=== PATIENT | male | born 1960 | race Caucasian/White ===

== ENCOUNTER 2016-08-22 13:42 | Emergency (ER) | payer MEDICARE, MEDICAID ==
--- NOTE | 2016-08-22 13:53 | ER Document Report ---
ED Psych Disorder / Suicide - General Chief Complaint: Overdose Stated Complaint: POSSIBLE OVERDOSE Notes: The patient is a 56-year-old male who presents by EMS after he overdosed on his whole bottle of temazepam. The patient is sleepy in the emergency room and unable to provide any additional history. He is satting 95%, breathing normally and in no respiratory distress. EMS said that this was a suicide attempt. TRAVEL OUTSIDE OF THE [place] IN LAST 30 DAYS: No - Related Data Allergies/Adverse Reactions: No Known Allergies Allergy (Verified 12/23/15 21:42) Past Medical History - General Information source: Emergency Med Personnel - Social History Smoking Status: Unknown if Ever Smoked Family History: Reviewed & Not Pertinent - Past Medical History Cardiac Medical History: Denies: Hx Atrial Fibrillation, Hx Congestive Heart Failure, Hx Coronary Artery Disease, Hx Heart Attack, Hx Hypercholesterolemia, Hx Hypertension, Hx Peripheral Vascular Disease, Hx Pulmonary Embolism, Hx Heart Murmur Pulmonary Medical History: Reports: Hx Pneumonia - , 07/2014? Denies: Hx Asthma, Hx Bronchitis, Hx COPD, Hx Respiratory Failure, Hx Sleep Apnea, Hx Tuberculosis Neurological Medical History: Denies: Hx Cerebrovascular Accident, Hx Seizures Endocrine Medical History: Denies: Hx Graves' Disease, Hx Hyperthyroidism, Hx Hypothyroidism Renal/ Medical History: Denies: Hx Benign Prostatic Hyperplasia, Hx End Stage Renal Disease, Hx Kidney Stones, Hx Peritoneal Dialysis Malignancy Medical History: Denies Hx Leukemia, Denies Hx Lung Cancer GI Medical History: Reports: Hx Ulcer - as a child. Denies: Hx Crohn's Disease , Hx Gastroesophageal Reflux Disease, Hx Hiatal Hernia, Hx Irritable Bowel, Hx Liver Failure - Cirrhosis 2014 Hep C negative? Musculoskeltal Medical History: Reports Hx Arthritis, Denies Hx Fibromyalgia, Denies Hx Multiple Sclerosis, Denies Hx Muscular Dystrophy Psychiatric Medical History: Reports: Hx Depression Denies: Hx Bipolar Disorder, Hx Dementia, Hx Post Traumatic Stress Disorder, Hx Schizophrenia Traumatic Medical History: Reports: Hx Fractures - bilateral hands, right wrist , broken ribs, left tibia/fibula Infectious Medical History: Denies: Hx HIV Past Surgical History: Reports: Hx Orthopedic Surgery - LLE. Denies: Hx Appendectomy, Hx Bowel Surgery, Hx Cholecystectomy, Hx Colostomy, Hx Coronary Artery Bypass Graft, Hx Gastric Bypass Surgery, Hx Herniorrhaphy, Hx Pacemaker, Hx Tonsillectomy - Immunizations Hx Diphtheria, Pertussis, Tetanus Vaccination: Yes Review of Systems - Review of Systems -: Yes ROS unobtainable due to patient's medical condition Physical Exam - Vital signs Vitals: Temp Pulse Resp BP Pulse Ox 97.9 F 90 22 H 121/84 97 08/22/16 13:45 08/22/16 13:45 08/22/16 13:45 08/22/16 13:45 08/22/16 13:45 - Notes Notes: PHYSICAL EXAMINATION: GENERAL: No acute distress. Somnolent. HEAD: Atraumatic, normocephalic. EYES: Pupils equal round and reactive to light, extraocular movements intact, sclera anicteric, conjunctiva are normal. ENT: nares patent, oropharynx clear without exudates. Moist mucous membranes. NECK: Normal range of motion, supple without lymphadenopathy LUNGS: Breath sounds clear to auscultation bilaterally and equal. No wheezes rales or rhonchi. HEART: Regular rate and rhythm without murmurs ABDOMEN: Soft, nontender, normoactive bowel sounds. No guarding, no rebound. No masses appreciated. EXTREMITIES: Normal range of motion, no pitting or edema. No cyanosis. NEUROLOGICAL: Cranial nerves grossly intact. SKIN: Warm, Dry, normal turgor, no rashes or lesions noted. Course - Re-evaluation Re-evalutation: Patient has evidence of benzo overdose with an empty bottle of temazepam at bedside. Will sign an IVC for concern about suicide attempt. Spoke to poison control and recommends observing patient for 6 hours. Patient is awake and alert at 19:30. He continued to have a normal respiratory drive and normal pulse ox during his 6 hour observation. Will medically clear patient and have psychiatry evaluate patient in the morning. - Vital Signs Vital signs: Temp Pulse Resp BP Pulse Ox 98.5 F 90 25 H 137/90 H 97 08/22/16 18:26 08/22/16 13:45 08/22/16 18:27 08/22/16 18:27 08/22/16 18:27 - Laboratory Result Diagrams: 08/22/16 15:35 08/22/16 15:35 Laboratory results interpreted by me: 08/22/16 08/22/16 08/22/16 15:05 15:35 15:35 WBC 3.6 L Hgb 11.5 L Hct 35.5 L MCV 79 L MCH 25.3 L RDW 18.5 H Plt Count 141 L Monocytes % 17.2 H Chloride 113 H BUN 5 L AST 107 H Albumin 3.1 L Urine Urobilinogen 4.0 H Salicylates < 1.0 L Acetaminophen < 10 L - EKG Interpretation by [place] EKG shows normal: Sinus rhythm, Dresher, Intervals, QRS Complexes, ST-T Waves Discharge - Discharge Clinical Impression: Suicide attempt Benzodiazepine overdose Qualifiers: Encounter type: initial encounter Injury intent: undetermined intent Qualified Code(s): T42.4X4A - Poisoning by benzodiazepines, undetermined, initial encounter Condition: Stable Disposition: PSYCH HOSP/UNIT
[2016-08-22 15:24] LABS: APPEARANCE,URINE CLEAR; BILIRUBIN,URINE NEGATIVE (NEGATIVE); GLUCOSE, URINE NEGATIVE (NEGATIVE); KETONES,URINE NEGATIVE (NEGATIVE); LEUKOCYTE ESTERASE,URINE NEGATIVE (NEGATIVE); NITRITE,URINE NEGATIVE (NEGATIVE); PROTEIN,URINE NEGATIVE (NEGATIVE); URINE SPECIFIC GRAVITY 1.006
[2016-08-22 15:47] LABS: URINE BARBITURATES SCREEN NEGATIVE; URINE METHADONE SCREEN NEGATIVE; URINE OPIATES LOW NEGATIVE; URINE PHENCYCLIDINE SCREEN NEGATIVE
[2016-08-22 15:58] LABS: ABSOLUTE BASOPHILS # (AUTO) 0.1 10^3/uL (0.0-0.2); ABSOLUTE EOSINOPHILS # (AUTO) 0.2 10^3/uL (0.0-0.6); ABSOLUTE LYMPHOCYTES (AUTO) 0.8 10^3/uL (0.5-4.7); ABSOLUTE MONOCYTES (AUTO) 0.6 10^3/uL (0.1-1.4); BASOPHILS % (AUTO) 1.5 % (0-2); EOSINOPHILS % (AUTO) 5.3 % (0-6); HEMATOCRIT 35.5 % (37.9-51.0); HEMOGLOBIN 11.5 g/dL (13.5-17.0); LYMPHOCYTES % (AUTO) 21.1 % (13-45); MEAN CORPUSCULAR HEMOGLOBIN 25.3 pg (27.0-33.4); MEAN CORPUSCULAR HGB CONC 32.2 g/dL (32.0-36.0); MEAN CORPUSCULAR VOLUME 79 fl (80-97); MONOCYTES % (AUTO) 17.2 % (3-13); RED BLOOD COUNT 4.52 10^6/uL (4.35-5.55); RED CELL DISTRIBUTION WIDTH 18.5 % (11.5-14.0); SEGMENTED NEUTROPHILS % (AUTO) 54.9 % (42-78); WHITE BLOOD COUNT 3.6 10^3/uL (4.0-10.5)
[2016-08-22 16:14] LABS: ALANINE AMINOTRANSFERASE 71 U/L (21-72); ALBUMIN 3.1 g/dL (3.5-5.0); ALCOHOL 78 mg/dL (NONE DETECTED); ALKALINE PHOSPHATASE 109 U/L (38-126); ANION GAP 7 (5-19); ASPARTATE AMINO TRANSFERASE 107 U/L (17-59); BLOOD UREA NITROGEN 5 mg/dL (7-20); CALCIUM 9.2 mg/dL (8.4-10.2); CARBON DIOXIDE 24 mmol/L (22-30); CHLORIDE 113 mmol/L (98-107); CREATININE RESULT 0.74 mg/dL (0.52-1.25); GLUCOSE 93 mg/dL (75-110); POTASSIUM 4.5 mmol/L (3.6-5.0); SODIUM 144.3 mmol/L (137-145); TOTAL PROTEIN 7.8 g/dL (6.3-8.2)
--- NOTE | 2016-08-23 12:31 | EKG REPORT ---
SEVERITY:- OTHERWISE NORMAL ECG - SINUS RHYTHM BORDERLINE LEFT AXIS DEVIATION : Confirmed by: Jinny Montoya 23-Aug-2016 12:30:50
--- NOTE | 2016-08-23 14:45 | PSYCHOLOGICAL NOTE ---
Psych Note - Psych Note Psych Note: The patient is a 56-year-old male who presents by EMS after he overdosed on his whole bottle of temazepam. The patient is sleepy in the emergency room and unable to provide any additional history. Patient is difficult to arouse and with unintelligible mumbling. When asked if he was trying to hurt himself the patient slightly shook his head with more unintelligible mumbling. At this time that patient is unable engage in an evaluation; re-evaluation will be conducted.
--- NOTE | 2016-08-23 14:52 | PSYCHOLOGICAL NOTE ---
Psych Note - Psych Note Psych Note: Re-evaluation The patient is a 56-year-old male who presents by EMS after he overdosed on his whole bottle of temazepam. The patient is sleepy in the emergency room and unable to provide any additional history. Patient is difficult understand with mumbling and low speech. Patient states that he was depressed and took about 60 15mg pills of temazepam. He continued to state that he just wanted to go to sleep but denies that he attempted suicide. Patient then stated that he needed to use the bathroom and that his urinal was not big enough. Patient is semi-alert and orientated to person place time and circumstance. Mood is irritable with flat affect. Patient denies suicidal ideation however admits to being depressed and taking his entire bottle of Temazepam. Patient denies homicidal ideation. Patient denies auditory visual hallucinations; no delusions are noted. Thought process is guarded. Conversational speech is low and mumbled. Eye contact was never maintained. Intellectual abilities appear to be within average range. Attention and concentration are poor. Insight, judgment, impulse control are poor. 311 Unspecified Depressive Disorder Impression\plan: Patient is recommended to continue under IVC; patient is demonstrating continued impairment of insight judgment and impulse control. Patient denies suicidal attempt however admits to taking 6015 mg tablets of temazepam in. Patient refuses to engage in attempts to derail conversations. Patient is recommended for inpatient treatment. Dr. Dhaliwal was consulted on the care and management of this patient. Attending physician is in agreement with recommendations and disposition.
[2016-08-23] MEDS ORDERED: IBUPROFEN 600 MG TABLET PO ONE (20:06)
[2016-08-24] MEDS ORDERED: IBUPROFEN 600 MG TABLET PO ONE (10:15)
--- NOTE | 2016-08-24 11:09 | PSYCHOLOGICAL NOTE ---
Psych Note - Psych Note Psych Note: Re-evaluation The patient is a 56-year-old male who presents by EMS after he overdosed on his whole bottle of temazepam. The patient is sleepy in the emergency room and unable to provide any additional history. Patient states that he takes "took too many pills." He continued to disclose that he lives with his sister and that his brother came down with a friend and he knew this was occurring however did not know that the friend was with 3 children. He continued disclosed that the 3 children were teenagers were up all night talking on cell phones lights are on in going in and out of the door. He stated that he was not getting any sleep because of this. He continued disclosed that he "went too far" and just "went off" because when he woke up he saw that they had moved the TV manufacturing process engineer his stereo without his permission. He continued disclosed that that is when he ended up taking too many of his pills. He states that he received his temazepam from his primary care to help him sleep. Clinician called patient's sister Kristyn, , she disclosed that her brother and her live alone and their brother Lui lives next door and he had somebody living with him. She denies that there was teenagers in the home. She continue disclosed that the patient is an alcoholic and has been for many years. She states that they have been living together for 7 years and that he drinks every day. She continued to disclose that 3 days prior to this event he was drinking heavily and that while he was intoxicated he took the medication; that is when she called EMS for assistance. Kristyn agrees to be patient's safety resource to ensure he does not have access to medications both prescription and [id number] them to assist him with any medical appointments. She continues to agree to encourage the patient to attend substance abuse i.e. alcohol abuse services. Clinician spoke with the patient again to discuss discrepancies in stories. He continued disclosed that she must move the patient out of the home. He states he does not know why she is not telling the truth is glad that they are not living there since he doesn't have to worry about it. He continued to disclose that he is an alcoholic and has been drinking for decades. He states he does drink every day but denies going on a binge. He continued to state that 3 days prior to this event he does not remember anything specific day that he did speak to a friend from [place] and they were talking about Super Bowl he stated that everything else was normal to include the amount that he was drinking. Patient agrees that it is time to seek outpatient services and disclosed that he has been to [facility] important the past. He disclosed that in [place] he had a sponsor with AA however the sponsor committed suicide family's never attempted it since. Patient states that he will think about looking for a peer support program for his alcohol abuse. Patient adamantly denies wanting to hurt himself or others. Patient is semi-alert and orientated to person place time and circumstance. Patient's mood is euthymic with congruent affect. Patient denies continued suicidal and homicidal ideation. Patient denies auditory visual hallucinations ; no delusions are noted. Thought process is organized and linear. Conversational speech is within normal rate tone and prosody. Eye contact was well maintained. Intellectual abilities appear to be within average range. Attention and concentration are good. Insight, judgment, impulse control are fair. 291.9 (F 10.99) Unspecified Alcohol-Related Disorder 311 Unspecified Depressive Disorder Impression\\plan: Patient is recommended for rescind of IVC is considered psychiatrically cleared for discharge. Patient denies continued suicidal ideation and no longer meets criteria per [place] GS 120 2C. Patient's story of what occurred does not correlate with collateral both agree the root of the issue is alcoholism. At this time the stressor that the patient identifies does not exist per the collateral which the patient identifies as a good thing. Patient agrees to outpatient services for substance abuse i.e. alcohol abuse services. Patient is psychiatrically cleared for discharge. Dr. Dhaliwal was consulted on the care and management of this patient. Attending physician is in agreement with recommendations and disposition.
[2016-08-24 11:42] VITALS: BP 138/79
== END 2016-08-24 11:42 ==
LOC: ER 13:42
DX: T42.4X2A Poisoning by benzodiazepines, intentional self-harm, initial encounter (principal); R40.0 Somnolence
CPT/HCPCS: 93005; 99285; 36415; 80307 ×4; 85025; 80053; 81001; 93010; A9270

== ENCOUNTER 2017-02-23 01:16 | Emergency (ER) | payer MEDICARE, MEDICAID ==
[2017-02-23] MEDS ORDERED: LIDOCAINE 5% (700 MG) TRANSDERMAL ADH..PATCH TP ONE (02:08)
[2017-02-23] MEDS ORDERED: MORPHINE SULFATE IR 15 MG TABLET PO ONE (02:08)
--- NOTE | 2017-02-23 03:13 | RADIOLOGY REPORT (SQ) ---
EXAM DESCRIPTION: HIP LEFT AP/LATERAL COMPLETED DATE/TIME: 02/23/2017 2:37 am REASON FOR STUDY: pain, fall COMPARISON: Left hip x-ray 12/23/2015, 01/29/2016, 06/18/2016. NUMBER OF VIEWS: Two views. TECHNIQUE: AP pelvis and additional frog-leg view of the left hip. LIMITATIONS: None. FINDINGS: The patient is status post total left hip arthroplasty. The orthopedic hardware appears i ntact. There is no evidence for acute fracture or dislocation. The right hip joint is maintained. The visualized pelvic ring appears intact. Degenerative changes in the visualized lower lumbar spine . IMPRESSION: Status post total left hip arthroplasty. No radiographic evidence for acute fracture. TECHNICAL DOCUMENTATION: JOB ID: [id number] 2010 [employer]- All Rights Reserved
--- NOTE | 2017-02-23 03:22 | RADIOLOGY REPORT (SQ) ---
EXAM DESCRIPTION: L SPINE WHOLE COMPLETED DATE/TIME: 02/23/2017 2:37 am REASON FOR STUDY: left low back pain COMPARISON: Lumbar spine x-ray 03/11/2013. NUMBER OF VIEWS: Five views including obliques. TECHNIQUE: AP, lateral, oblique, and sacral radiographic images acquired of the lumbar spine. LIMITATIONS: None. FINDINGS: MINERALIZATION: Normal. ALIGNMENT: Mild dextro scoliosis. Mild retrolisthesis of L3 on L4, of L4 on L5 and of L5 on S1. VERTEBRAE: No compression fracture. DISCS: Multilevel degenerative disc disease and osteophytosis, worst at L3-L4, L4-L5 and L5-S1. POSTERIOR ELEMENTS: Multilevel facet arthropathy noted in the lower lumbar spine. HARDWARE: None in the spine. PARASPINAL SOFT TISSUES: Normal. PELVIS: SI joints intact. IMPRESSION: No compression fracture at the lumbar spine. Multilevel degenerative changes. TECHNICAL DOCUMENTATION: JOB ID: [id number] 2010 [employer]- All Rights Reserved
[2017-02-23] MEDS ORDERED: ONDANSETRON 4 MG TAB.RAPDIS PO ONE (03:37)
--- NOTE | 2017-02-23 03:42 | ER Document Report ---
ED General - General Chief Complaint: Hip Pain Stated Complaint: HIP PAIN TO TOES AND GROIN,NO KNOWN INJRY Time Seen by Provider: 02/23/17 01:51 Notes: Patient is a 56-year-old male with a past medical history of a total left hip arthroplasty 10 days of left hip pain left low back pain. States the pain as a severe, constant, stabbing, shooting pain that starts in the left low back and left hip and radiates down to his left knee. 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 Since that time the pain is gotten progressively worse. He has not followed up with his orthopedic surgeon or primary care physician. States that walking or moving worsens the pain. He has been trying ibuprofen with minimal to no improvement of the pain. Denies a history of similar symptoms in the past. Denies any bowel or bladder incontinence, fever, weakness or numbness. TRAVEL OUTSIDE OF THE [place] IN LAST 30 DAYS: No - Related Data Allergies/Adverse Reactions: No Known Allergies Allergy (Verified 02/23/17 01:25) Past Medical History - General Information source: Patient - Social History Smoking Status: Current Every Day Smoker Frequency of alcohol use: Occasional Drug Abuse: None Lives with: Family Family History: Reviewed & Not Pertinent - Past Medical History Cardiac Medical History: Denies: Hx Atrial Fibrillation, Hx Congestive Heart Failure, Hx Coronary Artery Disease, Hx Heart Attack, Hx Hypercholesterolemia, Hx Hypertension, Hx Peripheral Vascular Disease, Hx Pulmonary Embolism, Hx Heart Murmur Pulmonary Medical History: Reports: Hx Pneumonia - , 07/2014? Denies: Hx Asthma, Hx Bronchitis, Hx COPD, Hx Respiratory Failure, Hx Sleep Apnea, Hx Tuberculosis Neurological Medical History: Denies: Hx Cerebrovascular Accident, Hx Seizures Endocrine Medical History: Denies: Hx Graves' Disease, Hx Hyperthyroidism, Hx Hypothyroidism Renal/ Medical History: Denies: Hx Benign Prostatic Hyperplasia, Hx End Stage Renal Disease, Hx Kidney Stones, Hx Peritoneal Dialysis Malignancy Medical History: Denies Hx Leukemia, Denies Hx Lung Cancer GI Medical History: Reports: Hx Ulcer - as a child. Denies: Hx Crohn's Disease , Hx Gastroesophageal Reflux Disease, Hx Hiatal Hernia, Hx Irritable Bowel, Hx Liver Failure - Cirrhosis 2014 Hep C negative? Musculoskeltal Medical History: Reports Hx Arthritis, Denies Hx Fibromyalgia, Denies Hx Multiple Sclerosis, Denies Hx Muscular Dystrophy Psychiatric Medical History: Reports: Hx Depression Denies: Hx Bipolar Disorder, Hx Dementia, Hx Post Traumatic Stress Disorder, Hx Schizophrenia Traumatic Medical History: Reports: Hx Fractures - bilateral hands, right wrist , broken ribs, left tibia/fibula Infectious Medical History: Denies: Hx HIV Past Surgical History: Reports: Hx Orthopedic Surgery - LLE. Denies: Hx Appendectomy, Hx Bowel Surgery, Hx Cholecystectomy, Hx Colostomy, Hx Coronary Artery Bypass Graft, Hx Gastric Bypass Surgery, Hx Herniorrhaphy, Hx Pacemaker, Hx Tonsillectomy - Immunizations Hx Diphtheria, Pertussis, Tetanus Vaccination: Yes Review of Systems - Review of Systems Notes: Constitutional: Negative for fever. HENT: Negative for sore throat. Eyes: Negative for visual changes. Cardiovascular: Negative for chest pain. Respiratory: Negative for shortness of breath. Gastrointestinal: Negative for abdominal pain, vomiting or diarrhea. Genitourinary: Negative for dysuria. Musculoskeletal: Positive for left low back pain and left hip pain Skin: Negative for rash. Neurological: Negative for headaches, weakness or numbness. 10 point ROS negative except as marked above and in HPI. Physical Exam - Vital signs Vitals: Temp Pulse Resp BP Pulse Ox 98.6 F 83 18 159/95 H 97 02/23/17 01:30 02/23/17 01:30 02/23/17 01:30 02/23/17 01:30 02/23/17 01:30 Interpretation: Normal Notes: PHYSICAL EXAMINATION: GENERAL: Well-appearing, well-nourished and in no acute distress. HEAD: Atraumatic, normocephalic. EYES: Pupils equal round and reactive to light, extraocular movements intact, sclera anicteric, conjunctiva are normal. ENT: nares patent, oropharynx clear without exudates. Moist mucous membranes. NECK: Normal range of motion, supple without lymphadenopathy LUNGS: Breath sounds clear to auscultation bilaterally and equal. No wheezes rales or rhonchi. HEART: Regular rate and rhythm without murmurs ABDOMEN: Soft, nontender, normoactive bowel sounds. No guarding, no rebound. No masses appreciated. EXTREMITIES: Pain with axial loading of the left hip as well as internal/ external rotation. No deformity. No leg shortening. Back: No midline spinal tenderness, step-offs or deformities. Pain on palpation of the left mattie-lumbar spinal musculature NEUROLOGICAL: 5 out of 5 strength both distally and proximally bilateral lower extremities. 2+ patellar reflexes bilaterally. No clonus. Sensation grossly intact in the bilateral lower extremities. Patient is able to ambulate without difficulty. PSYCH: Normal mood, normal affect. SKIN: Warm, Dry, normal turgor, no rashes or lesions noted. Course - Re-evaluation Re-evalutation: 02/23/17 03:38 Presentation of a well appearing patient complaining of acute on chronic back pain and left hip pain with associated sciatica. No rapid progression of symptoms, systemic symptoms including fevers, chills, weight loss, history of recent bacterial infection, bilateral symptoms, numbness, weakness, difficulty walking, urinary retention or bowel incontinence, personal history of cancer, immunosuppression, diabetes, known AAA, or history of IV drug use. Exam is without point tenderness over vertebral bodies, pulsatile abdominal mass, and patient has symmetric and intact lower extremity strength, sensation, and reflexes without clonus. 2+ symmetric medial malleolar and dorsalis pedis pulses Based on history and physical, I have a very low suspicion of a concerning etiology of pain including epidural compression syndrome, spinal infection, transverse myelitis, malignancy, abdominal aortic aneurysm, renal colic, acute lower extremity claudication, neurogenic claudication, ankylosing spondylitis, or other intra-abdominal process. Due to absence of concerning risk factors in history and physical as well as absence of rapidly progressive, severe, or bilateral symptoms, will defer imaging at this point. Plan to manage conservatively with outpatient analgesia, analgesia, and physical therapy. - Continue normal daily activities as tolerated by pain - Provide with standard musculoskeletal back pain exercise instructions - Instruct to follow up with primary care provider if symptoms not improving - Provide careful return precautions and concerning symptoms to watch for. - Vital Signs Vital signs: Temp Pulse Resp BP Pulse Ox 98.6 F 83 18 159/95 H 97 02/23/17 01:30 02/23/17 01:30 02/23/17 01:30 02/23/17 01:30 02/23/17 01:30 - Diagnostic Test Radiology reviewed: Image reviewed, Reports reviewed Radiology results interpreted by me: 02/23/17 03:38 Left hip x-ray: Hardware in place. No acute fracture Discharge - Discharge Clinical Impression: Left hip pain, Left sciatic nerve pain Condition: Good Disposition: HOME, SELF-CARE Additional Instructions: You have been seen in the Emergency Department (ED) today for back pain and left hip pain. Your workup and exam have not shown any acute abnormalities and you are likely suffering from muscle strain or possible problems with your discs , but there is no treatment that will fix your symptoms at this time. Please take the gabapentin that has been prescribed as directed. You should also purchase a local lidocaine cream such as "aspercreme with lidocaine" and use per bottle instructions to the affected area. Apply heat to the area as often as you are able. Continue to keep active and avoid prolonged periods of bed rest. Please follow up with your doctor as soon as possible regarding today's ED visit and your back pain. Return to the ED for worsening back pain, fever, weakness or numbness of either leg, or if you develop either (1) an inability to urinate or have bowel movements, or (2) loss of your ability to control your bathroom functions (if you start having "accidents"), or if you develop other new symptoms that concern you.concern you. Prescriptions: Gabapentin 300 mg PO TID #90 capsule Referrals: EMILY AYALA NP [Primary Care Provider] - Follow up in 3-5 days
[2017-02-23 06:36] VITALS: BP 148/81
== END 2017-02-23 04:23 | disposition home or self-care (01) ==
LOC: ER 01:16
DX: M54.42 Lumbago with sciatica, left side (principal); M25.552 Pain in left hip; X50.0XXA Overexertion from strenuous movement or load, initial encounter; G89.29 Other chronic pain; Z96.642 Presence of left artificial hip joint; F17.200 Nicotine dependence, unspecified, uncomplicated
CPT/HCPCS: 99284; 73502; 72110; A9270 ×2; S0119

== ENCOUNTER 2017-03-01 14:52 | Emergency (ER) | payer MEDICARE, MEDICAID ==
[2017-03-01] MEDS ORDERED: KETOROLAC TROMETHAMINE 60 MG/2 ML SDV IM ONE (15:34)
--- NOTE | 2017-03-01 15:40 | ER Document Report ---
ED Hip Pain/Injury - General Chief Complaint: Hip Pain Stated Complaint: HIP PAIN Time Seen by Provider: 03/01/17 15:24 Mode of Arrival: Medic Information source: Patient TRAVEL OUTSIDE OF THE [place] IN LAST 30 DAYS: No - HPI Patient complains to provider of: Pain Occurred: Other - Weeks Onset/Duration: Gradual Quality of pain: Achy, Stabbing Severity: Moderate Pain Level: 3 Skin Color: Normal Skin Temperature: Warm Notes: Patient arrives with complaints of left hip pain and left leg pain. The patient has a history of chronic low back and hip problems. Patient states for the last several weeks he been having pain and he was actually seen here 10 days ago for low back and left hip pain. At that time the patient had x-ray showing degenerative changes with no acute findings. He was placed on gabapentin. He has since followed up with his primary care physician on Friday and is in the process of getting referred. He had no new injuries. No fevers. No bowel or bladder dysfunction. No blood thinners. He denies any IV drug use. He denies any abdominal pain. No nausea, vomiting, diarrhea. He has no other complaints at this time. - Related Data Allergies/Adverse Reactions: No Known Allergies Allergy (Verified 03/01/17 15:01) Past Medical History - Social History Smoking Status: Current Every Day Smoker Chew tobacco use (# tins/day): No Frequency of alcohol use: Occasional Drug Abuse: None Family History: Reviewed & Not Pertinent - Past Medical History Cardiac Medical History: Denies: Hx Atrial Fibrillation, Hx Congestive Heart Failure, Hx Coronary Artery Disease, Hx Heart Attack, Hx Hypercholesterolemia, Hx Hypertension, Hx Peripheral Vascular Disease, Hx Pulmonary Embolism, Hx Heart Murmur Pulmonary Medical History: Reports: Hx Pneumonia - , 07/2014? Denies: Hx Asthma, Hx Bronchitis, Hx COPD, Hx Respiratory Failure, Hx Sleep Apnea, Hx Tuberculosis Neurological Medical History: Denies: Hx Cerebrovascular Accident, Hx Seizures Endocrine Medical History: Denies: Hx Graves' Disease, Hx Hyperthyroidism, Hx Hypothyroidism Renal/ Medical History: Denies: Hx Benign Prostatic Hyperplasia, Hx End Stage Renal Disease, Hx Kidney Stones, Hx Peritoneal Dialysis Malignancy Medical History: Denies Hx Leukemia, Denies Hx Lung Cancer GI Medical History: Reports: Hx Ulcer - as a child. Denies: Hx Crohn's Disease , Hx Gastroesophageal Reflux Disease, Hx Hiatal Hernia, Hx Irritable Bowel, Hx Liver Failure - Cirrhosis 2015 Hep C negative? Musculoskeltal Medical History: Reports Hx Arthritis, Denies Hx Fibromyalgia, Denies Hx Multiple Sclerosis, Denies Hx Muscular Dystrophy Psychiatric Medical History: Reports: Hx Depression Denies: Hx Bipolar Disorder, Hx Dementia, Hx Post Traumatic Stress Disorder, Hx Schizophrenia Traumatic Medical History: Reports: Hx Fractures - bilateral hands, right wrist , broken ribs, left tibia/fibula Infectious Medical History: Denies: Hx HIV Past Surgical History: Reports: Hx Orthopedic Surgery - LLE. Denies: Hx Appendectomy, Hx Bowel Surgery, Hx Cholecystectomy, Hx Colostomy, Hx Coronary Artery Bypass Graft, Hx Gastric Bypass Surgery, Hx Herniorrhaphy, Hx Pacemaker, Hx Tonsillectomy - Immunizations Hx Diphtheria, Pertussis, Tetanus Vaccination: Yes Review of Systems - Review of Systems -: Yes All other systems reviewed and negative Physical Exam - Vital signs Vitals: Temp Pulse Resp BP Pulse Ox 98.3 F 84 20 119/64 95 03/01/17 15:01 03/01/17 15:01 03/01/17 15:01 03/01/17 15:01 03/01/17 15:01 - Notes Notes: GENERAL: alert, cooperative, nontoxic, no distress. HEAD: normocephalic, atraumatic EYES: conjunctiva pink without discharge, no external redness or swelling. EARS: no external swelling, no external redness NOSE: atraumatic, no external swelling MOUTH/THROAT: mucous membranes moist and pink, posterior pharynx without erythema, swelling, exudate. No trismus or drooling. NECK: soft, supple, full range of motion, no meningismus. CHEST: no distress, lungs clear and equal throughout. No wheezing, rales, rhonchi. CARDIAC: regular rate and rhythm, no murmur, normal capillary refill, normal pulses. No peripheral edema noted. ABDOMEN: soft, nontender, no pusatile mass. BACK: Tenderness to the left lumbar paraspinal muscles. No midline tenderness step-offs or crepitus. No rash. EXTREMITIES: full range of motion of all extremities. No redness, no swelling. NEURO: alert and oriented -3, no focal deficits, full range of motion of all extremities. 5 out of 5 flexion and extension of the lower extremities bilaterally. Patellar and Achilles deep tendon reflexes are +2 bilaterally. Normal sensation with no saddle anesthesia. PYSCH: appropriate mood, affect. Patient is cooperative. SKIN: pink, warm, dry, no rash. Course - Re-evaluation Re-evalutation: 03/01/17 15:37 Patient is nontoxic appearing with stable vitals. The patient has a history of chronic back pain. He was seen here 10 days ago with the same complaint. He had x-rays of his low back and left hip at that time. These show degenerative changes without acute findings. The patient was given a prescription for gabapentin at that time. He has since followed up with his primary care doctor who is in the process of making a referral for him. He is still having pain. He denies any new injuries. He has no sign or risk of cauda equina, epidural abscess bleed, AAA, discitis. He will be given a shot of Toradol here in the emergency department, we will discharge him home on an NSAID since he is not currently on an NSAID. This will both help with pain and inflammation. He was instructed to follow-up with his primary care doc as needed and to follow-up with his referral physician as scheduled. Follow-up sooner for increased pain, fever, difficulty controlling his bowels or his bladder, or any further concerns. - Vital Signs Vital signs: Temp Pulse Resp BP Pulse Ox 98.3 F 84 20 119/64 95 03/01/17 15:01 03/01/17 15:01 03/01/17 15:01 03/01/17 15:01 03/01/17 15:01 Discharge - Discharge Clinical Impression: Chronic left hip pain Chronic back pain Qualifiers: Back pain location: low back pain Back pain laterality: left Sciatica presence : with sciatica Sciatica laterality: sciatica of left side Qualified Code(s): M54.42 - Lumbago with sciatica, left side; G89.29 - Other chronic pain Condition: Stable Disposition: HOME, SELF-CARE Instructions: Sciatica ([facility]), Chronic Back Pain ([facility]) Additional Instructions: Take medications as prescribed. Follow-up with your referral doctor as scheduled. Follow-up sooner for increased pain, fever, difficulty controlling her bowels or bladder, or any further concerns. Prescriptions: Diclofenac Sodium [Voltaren] 75 mg PO BID #20 tablet. Referrals: EMILY AYALA NP [Primary Care Provider] - Follow up as needed
[2017-03-01 16:23] VITALS: BP 121/72
== END 2017-03-01 16:28 | disposition home or self-care (01) ==
LOC: ER 14:52
DX: M54.42 Lumbago with sciatica, left side (principal); M25.552 Pain in left hip; M79.605 Pain in left leg; M54.5 Low back pain; G89.29 Other chronic pain
CPT/HCPCS: 99283; 96372; J1885

== ENCOUNTER 2017-08-24 14:38 | Observation (INO) | payer MEDICARE, MEDICAID ==
[2017-08-24] MEDS ORDERED: ASPIRIN 81 MG TABLET, CHEWABLE PO ONE (14:39)
--- NOTE | 2017-08-24 14:42 | ER Document Report ---
ED General - General Chief Complaint: Chest Pain Stated Complaint: CHEST PAIN Time Seen by Provider: 08/24/17 14:41 Mode of Arrival: Medic Information source: Patient TRAVEL OUTSIDE OF THE [place] IN LAST 30 DAYS: No - HPI Notes: 57-year-old male presents today with complaints of chest pain, dyspnea and shortness of breath that has been occurring for the last 3 days via EMS. History of left-sided vascular necrosis. Patient was given 324 baby aspirin in route tissue, 2 nitro sublingual. Patient states his chest pain episode lasted for about 45 minutes, radiates to left shoulder and left arm reveals numbness and tingling while at rest. Reports he has had at least 5 episodes a day for the last 3 days. Patient thought the symptoms are related to acid reflux. Reports worse with ambulation, states he becomes more dyspneic only going 10 feet. denies nausea, fevers, chills, vomiting, diarrhea, abdominal pain, hematuria, testicular pain, blurred vision, double vision, loss of vision, syncope, headaches, neck pain, weakness, bowel or bladder dysfunction, saddle anesthesia or rash - Related Data Allergies/Adverse Reactions: No Known Allergies Allergy (Verified 08/24/17 14:38) Past Medical History - General Information source: Patient - Social History Smoking Status: Former Smoker Family History: Reviewed & Not Pertinent - Past Medical History Cardiac Medical History: Denies: Hx Atrial Fibrillation, Hx Congestive Heart Failure, Hx Coronary Artery Disease, Hx Heart Attack, Hx Hypercholesterolemia, Hx Hypertension, Hx Peripheral Vascular Disease, Hx Pulmonary Embolism, Hx Heart Murmur Pulmonary Medical History: Reports: Hx Pneumonia - , 07/2014? Denies: Hx Asthma, Hx Bronchitis, Hx COPD, Hx Respiratory Failure, Hx Sleep Apnea, Hx Tuberculosis Neurological Medical History: Denies: Hx Cerebrovascular Accident, Hx Seizures Endocrine Medical History: Denies: Hx Graves' Disease, Hx Hyperthyroidism, Hx Hypothyroidism Renal/ Medical History: Denies: Hx Benign Prostatic Hyperplasia, Hx End Stage Renal Disease, Hx Kidney Stones, Hx Peritoneal Dialysis Malignancy Medical History: Denies Hx Leukemia, Denies Hx Lung Cancer GI Medical History: Reports: Hx Ulcer - as a child. Denies: Hx Crohn's Disease , Hx Gastroesophageal Reflux Disease, Hx Hiatal Hernia, Hx Irritable Bowel, Hx Liver Failure - Cirrhosis 2014 Hep C negative?, Hx Pancreatitis Musculoskeltal Medical History: Reports Hx Arthritis, Denies Hx Fibromyalgia, Denies Hx Multiple Sclerosis, Denies Hx Muscular Dystrophy Psychiatric Medical History: Reports: Hx Depression Denies: Hx Bipolar Disorder, Hx Dementia, Hx Post Traumatic Stress Disorder, Hx Schizophrenia Traumatic Medical History: Reports: Hx Fractures - bilateral hands, right wrist , broken ribs, left tibia/fibula Infectious Medical History: Denies: Hx HIV Past Surgical History: Reports: Hx Orthopedic Surgery - LLE. Denies: Hx Appendectomy, Hx Bowel Surgery, Hx Cholecystectomy, Hx Colostomy, Hx Coronary Artery Bypass Graft, Hx Gastric Bypass Surgery, Hx Herniorrhaphy, Hx Pacemaker, Hx Tonsillectomy - Immunizations Hx Diphtheria, Pertussis, Tetanus Vaccination: Yes Review of Systems - Review of Systems Constitutional: No symptoms reported EENT: No symptoms reported Cardiovascular: See HPI Respiratory: See HPI Gastrointestinal: No symptoms reported Genitourinary: No symptoms reported Male Genitourinary: No symptoms reported Musculoskeletal: No symptoms reported Skin: No symptoms reported Hematologic/Lymphatic: No symptoms reported Neurological/Psychological: No symptoms reported Physical Exam - Vital signs Vitals: Pulse Ox 97 08/24/17 14:40 - Notes Notes: PH PHYSICAL EXAMINATION: GENERAL: chronically appearing ill male in moderate respiratory distress HEAD: Atraumatic, normocephalic. EYES: Pupils equal round and reactive to light, extraocular movements intact, sclera anicteric, conjunctiva are normal. ENT: Nares patent, oropharynx clear without exudates. Moist mucous membranes. NECK: Normal range of motion, supple without lymphadenopathy LUNGS: Decreased air exchange bilaterally. Accessory muscle use. Diffuse wheezing. No rales or rhonchi HEART: Tachycardia and rhythm without murmurs ABDOMEN: Soft, nontender, nondistended abdomen. No guarding, no rebound. No masses appreciated. Musculoskeletal: Normal range of motion, no pitting or edema. No cyanosis. NEUROLOGICAL: Cranial nerves grossly intact. Normal speech, normal gait. Normal sensory, motor exams PSYCH: Normal mood, normal affect. SKIN: Warm, Dry, normal turgor, no rashes or lesions noted.. Course - Re-evaluation Re-evalutation: Rechecked the patient who is resting comfortably. On re-exam, patient is symptomatically improved. Cardiac enzymes show troponin that is elevated at 0.092, patient had relief with 2 doses of nitroglycerin. EKG showed sinus tachycardia STEMI. Patient given 2 breathing treatments. Breath sounds are clear after treatment. D-dimer negative. 1500-consulted with Dr. Jeong, hospitalist, regarding pertinent laboratory and radiological findings. Will admit observation telemetry. Patient agree with plan of care and agreed to stay. - Vital Signs Vital signs: Temp Pulse Resp BP Pulse Ox 98.7 F 18 130/70 H 98 08/24/17 14:56 08/24/17 17:01 08/24/17 17:01 08/24/17 17:01 - Laboratory Result Diagrams: 08/24/17 15:04 08/24/17 15:04 Laboratory results interpreted by me: 08/24/17 08/24/17 15:04 15:04 WBC 15.2 H Hgb 13.4 L RDW 19.0 H Monocytes % 15.6 H Absolute Neutrophils 10.3 H Absolute Monocytes 2.4 H Sodium 135.2 L Chloride 109 H Carbon Dioxide 20 L Glucose 194 H Direct Bilirubin 0.6 H Albumin 2.9 L - Diagnostic Exam Chest Type of test: Xray Findings: Nml/NAD, No infiltrates, Nml heart size, Nml mediastinum, No pneumothorax - EKG Interpretation by Me EKG shows normal: Sinus rhythm Rate: Tachycardia [place]/QRS: Left axis deviation Discharge - Discharge Clinical Impression: Elevated troponin I level, Angina pectoris Condition: Good Disposition: ADMITTED OBSERVATION Admitting Provider: Hospitalist - Dr. jeong Unit Admitted: Telemetry
[2017-08-24] MEDS ORDERED: METHYLPREDNISOLONE INJ 125 MG/2 ML SDV IV ONE (14:51)
[2017-08-24] MEDS ORDERED: NITROGLYCERIN 0.4 MG/TAB 25 TAB/BOTTLE SL ONE (14:51)
[2017-08-24] MEDS ORDERED: IPRATROPIUM/ALBUTEROL 0.5-2.5 MG/3 ML AMPUL NEB ONE ×2 (14:52→16:20)
[2017-08-24 15:33] LABS: ABSOLUTE BASOPHILS # (AUTO) 0.1 10^3/uL (0.0-0.2); ABSOLUTE EOSINOPHILS # (AUTO) 0.3 10^3/uL (0.0-0.6); ABSOLUTE LYMPHOCYTES (AUTO) 2.1 10^3/uL (0.5-4.7); ABSOLUTE MONOCYTES (AUTO) 2.4 10^3/uL (0.1-1.4); ABSOLUTE NEUT (AUTO) 10.3 10^3/uL (1.7-8.2); BASOPHILS % (AUTO) 0.4 % (0-2); EOSINOPHILS % (AUTO) 2.3 % (0-6); HEMATOCRIT 40.8 % (37.9-51.0); HEMOGLOBIN 13.4 g/dL (13.5-17.0); LYMPHOCYTES % (AUTO) 13.8 % (13-45); MEAN CORPUSCULAR HEMOGLOBIN 28.1 pg (27.0-33.4); MEAN CORPUSCULAR HGB CONC 32.8 g/dL (32.0-36.0); MEAN CORPUSCULAR VOLUME 86 fl (80-97); MONOCYTES % (AUTO) 15.6 % (3-13); PLATELET COUNT 196 10^3/uL (150-450); RED BLOOD COUNT 4.76 10^6/uL (4.35-5.55); SEGMENTED NEUTROPHILS % (AUTO) 67.9 % (42-78); TOTAL CELLS COUNTED % (AUTO) 100 %; WHITE BLOOD COUNT 15.2 10^3/uL (4.0-10.5)
--- NOTE | 2017-08-24 15:41 | RADIOLOGY REPORT (SQ) ---
EXAM DESCRIPTION: CHEST SINGLE VIEW COMPLETED DATE/TIME: 08/24/2017 3:27 pm REASON FOR STUDY: cp COMPARISON: 12/28/2015 EXAM PARAMETERS: NUMBER OF VIEWS: One view. TECHNIQUE: Single frontal radiographic view of the chest acquired. RADIATION DOSE: NA LIMITATIONS: None. FINDINGS: LUNGS AND PLEURA: No acute opacities, masses or pneumothorax. No pleural effusion. MEDIASTINUM AND HILAR STRUCTURES: Stable. HEART AND VASCULAR STRUCTURES: Stable. BONES: No acute findings. HARDWARE: None in the chest. OTHER: No other significant finding. IMPRESSION: NO ACUTE RADIOGRAPHIC FINDING IN THE CHEST. TECHNICAL DOCUMENTATION: JOB ID: [id number] [place]-72 2010 [employer]- All Rights Reserved
[2017-08-24 15:51] LABS: ALANINE AMINOTRANSFERASE 69 U/L (21-72); ALBUMIN 2.9 g/dL (3.5-5.0); ALKALINE PHOSPHATASE 123 U/L (38-126); ANION GAP 6 (5-19); ASPARTATE AMINO TRANSFERASE 45 U/L (17-59); BILIRUBIN,DIRECT 0.6 mg/dL (0.0-0.4); BLOOD UREA NITROGEN 11 mg/dL (7-20); CALCIUM 9.5 mg/dL (8.4-10.2); CARBON DIOXIDE 20 mmol/L (22-30); CHLORIDE 109 mmol/L (98-107); GLUCOSE 194 mg/dL (75-110); PHOSPHORUS 2.7 mg/dL (2.5-4.5); POTASSIUM 4.6 mmol/L (3.6-5.0); SODIUM 135.2 mmol/L (137-145); TOTAL PROTEIN 6.4 g/dL (6.3-8.2)
--- NOTE | 2017-08-24 18:33 | EKG REPORT ---
SEVERITY:- OTHERWISE NORMAL ECG - SINUS TACHYCARDIA BORDERLINE LEFT AXIS DEVIATION : Confirmed by: Jinny Montoya 24-Aug-2017 18:32:45
[2017-08-24] MEDS ORDERED: ACETAMINOPHEN 325 MG TABLET PO PRN (19:23)
[2017-08-24] MEDS ORDERED: IPRATROPIUM/ALBUTEROL 0.5-2.5 MG/3 ML AMPUL NEB PRN (19:23)
--- NOTE | 2017-08-24 19:41 | PDOC H&P ---
History of Present Illness Admission Date/PCP: 08/24/17 17:38 EMILY AYALA NP Patient complains of: chest pains History of Present Illness: FABIO MURILLO is a 57 year old male Chronic smoker presents to the ED with a 3 day history of increasing chest pains and shortness of breath patient states the pain Is precordial radiates to the left arm; occurs at any time rest or with physical exertion It is associated with a cough productive of yellow mucus and shortness of breath Upon evaluation in the ED patient had troponins in the intermediate range, a normal EKG, normal chest x-ray He was subsequently admitted for observation under hospitalist service Past Medical History Cardiac Medical History: Denies: Atrial Fibrillation, Congestive Heart Failure, Coronary Artery Disease, Myocardial Infarction, Hyperlipidema, Hypertension, Peripheral Vascular Disease, Pulmonary Embolism, Heart Murmur Pulmonary Medical History: Reports: Pneumonia - , 07/2014? Denies: Asthma, Bronchitis, Chronic Obstructive Pulmonary Disease (COPD), Respiratory Failure, Sleep Apnea, Tuberculosis Neurological Medical History: Denies: Seizures Endocrine Medical History: Denies: Hyperthyroidism, Hypothyroidism Renal/ Medical History: Denies: End Stage Renal Disease Malignancy Medical History: Denies: Breast Cancer, Cervical Cancer, Leukemia, Lung Cancer, Ovarian Cancer GI Medical History: Denies: Crohn's Disease, Gastroesophageal Reflux Disease, Hiatal Hernia Musculoskeltal Medical History: Reports: Arthritis Denies: Fibromyalgia Psychiatric Medical History: Reports: Depression Denies: Bipolar Disorder, Dementia, Post Traumatic Stress Disorder Hematology: Reports: Anemia - platelets run low Denies: Hemophilia, Sickle Cell Disease Infectious Medical History: Denies: HIV Past Surgical History Past Surgical History: Reports: Orthopedic Surgery - LLE Denies: Appendectomy, Cholecystectomy, Colostomy, Coronary Artery Bypass Graft, Gastric Bypass Surgery, Herniorrhaphy, Pacemaker, Tonsillectomy Social History Information Source: Patient Smoking Status: Former Smoker Frequency of Alcohol Use: Heavy Hx Recreational Drug Use: No Hx Prescription Drug Abuse: No - Advance Directive Resuscitation Status: Do Not Intubate Surrogate healthcare decision maker:: Sister Kristyn Family History Family History: Reviewed & Not Pertinent Parental Family History Reviewed: Yes Children Family History Reviewed: Yes Sibling(s) Family History Reviewed.: Yes Medication/Allergy Home Medications: Cyanocobalamin (Vitamin B-12) [Vitamin B-12] 1,000 mcg PO DAILY 01/22/16 Temazepam 15 mg PO QPM PRN 01/22/16 Oxycodone HCl [Oxy-Ir 5 mg Tablet] 5 mg PO Q6HP PRN #0 tablet 01/31/16 Rivaroxaban [Xarelto 10 mg Tablet] 10 mg PO QHS #0 tablet 01/31/16 Gabapentin 300 mg PO TID #90 capsule 02/23/17 Diclofenac Sodium [Voltaren] 75 mg PO BID #20 tablet. 03/01/17 Allergies/Adverse Reactions: No Known Allergies Allergy (Verified 08/24/17 14:38) Review of Systems Constitutional: ABSENT: anorexia, chills, headache(s) Eyes: ABSENT: visual disturbances Ears: ABSENT: hearing changes Nose, Mouth, and Throat: ABSENT: as per HPI, headache(s), mouth pain, sore throat, vertigo, other Cardiovascular: PRESENT: chest pain, dyspnea on exertion, edema, orthropnea Respiratory: PRESENT: cough, dyspnea, sputum - Purulent Gastrointestinal: ABSENT: abdominal pain, constipation, diarrhea, hematemesis, hematochezia, nausea, vomiting Genitourinary: ABSENT: dysuria, hematuria Musculoskeletal: ABSENT: joint swelling Neurological: ABSENT: abnormal gait, abnormal speech, confusion, dizziness, focal weakness, syncope Psychiatric: PRESENT: anxiety, depression Endocrine: ABSENT: cold intolerance, heat intolerance, polydipsia, polyuria Allergic/Immunologic: ABSENT: as per HPI, seasonal rhinorrhea, other Physical Exam Vital Signs: Temp Pulse Resp BP Pulse Ox 98.7 F 19 149/93 H 96 08/24/17 14:56 08/24/17 19:01 08/24/17 19:01 08/24/17 19:01 General appearance: PRESENT: no acute distress, obese Head exam: PRESENT: atraumatic, normocephalic Eye exam: PRESENT: conjunctiva pink, EOMI, PERRLA. ABSENT: scleral icterus Neck exam: ABSENT: carotid bruit, JVD, lymphadenopathy, thyromegaly Respiratory exam: PRESENT: clear to auscultation [place], decreased breath sounds. ABSENT: rales, rhonchi, wheezes Cardiovascular exam: PRESENT: RRR. ABSENT: diastolic murmur, rubs, systolic murmur Pulses: PRESENT: normal dorsalis pedis pul GI/Abdominal exam: PRESENT: normal bowel sounds, soft. ABSENT: distended, guarding, mass, organolmegaly, rebound, tenderness Rectal exam: PRESENT: deferred Extremities exam: PRESENT: full ROM, +1 edema. ABSENT: calf tenderness, clubbing, pedal edema Neurological exam: PRESENT: alert, awake, oriented to person, oriented to place , oriented to time, oriented to situation, CN II-XII grossly intact. ABSENT: motor sensory deficit Psychiatric exam: PRESENT: appropriate affect, normal mood. ABSENT: homicidal ideation, suicidal ideation Skin exam: PRESENT: dry, intact, warm. ABSENT: cyanosis, rash Results Laboratory Results: 08/24/17 08/24/17 08/24/17 15:04 15:04 15:04 WBC 15.2 H Hgb 13.4 L Hct 40.8 Sodium 135.2 L Potassium 4.6 Chloride 109 H Carbon Dioxide 20 L BUN 11 Creatinine 0.60 Troponin I 0.093 EKG Comments: SINUS TACHYCARDIA [CHRISTOPHE] . BORDERLINE LEFT AXIS DEVIATION Impressions: Chest X-Ray 08/24/17 14:39 IMPRESSION: NO ACUTE RADIOGRAPHIC FINDING IN THE CHEST. Assessment & Plan - Diagnosis (2) Acute bronchitis Qualifiers: Bronchitis organism: unspecified organism Qualified Code(s): J20.9 - Acute bronchitis, unspecified Is this a current diagnosis for this admission?: Yes (3) Tobacco abuse Is this a current diagnosis for this admission?: Yes - Time Time Spent with patient: Patient will be admitted to telemetry unit We will monitor Serial cardiac enzymes Repeat EKG in a.m. We will treat the patient with Ecotrin 325 mg p.o. daily and initiate Lipitor 80 mg nightly Obtain hemoglobin A1c and lipid profile thyroid profile in a.m. Patient will be treated empirically for an acute bronchitis with Levaquin IV Sputum culture will be obtained We will order nebs We will rule out PE and DVT Lovenox prophylaxis will be initiated Time Spent: 50 to 70 Minutes
[2017-08-24] MEDS ORDERED: ASPIRIN 325 MG TABLET, ENT COATED PO SCH (19:45)
[2017-08-24] MEDS ORDERED: ASPIRIN 325 MG TABLET, ENT COATED PO ONE (20:15)
[2017-08-24] MEDS ORDERED: ATORVASTATIN CALCIUM 80 MG TABLET PO ONE (20:15)
[2017-08-24 20:50] LABS: TROPONIN I 0.087 ng/mL
--- NOTE | 2017-08-24 20:55 | RADIOLOGY REPORT (SQ) ---
EXAM DESCRIPTION: CTA CHEST COMPLETED DATE/TIME: 08/24/2017 8:42 pm REASON FOR STUDY: SOB chest pain E09.69 DRUG/CHEM DIABETES MELLITUS W OTH COMPLICATION COMPARISON: 2014. Recent radiographs. TECHNIQUE: CT scan of the chest performed using helical scanning technique with dynamic intravenous contrast injection. Images reviewed with lung, soft tissue and bone windows. Reconstructed coronal and sagittal MPR images reviewed. Additional 3 dimensional post-processing performed to develop Maximal Intensity Projection images (MN P). All images stored on PACS. All CT scanners at this facility use dose modulation, iterative reconstruction, and/or weight based d osing when appropriate to reduce radiation dose to as low as reasonably achievable (ALARA). [facility]: Dose Right [facility]: CareDose [facility]: Dose Right [facility]: Teradose 4D [facility]: Megathread CONTRAST TYPE AND DOSE: contrast/concentration: Isovue 370.00 mg/ml; Total Contrast Delivered: 82.0 ml; Total Saline Delivered: 110.0 ml Contrast adequate for the aorta, sub optimal opacification of the pulmonary arteries. RENAL FUNCTION: GFR > 60. RADIATION DOSE: CT Rad equipment meets quality standard of care and radiation dose reduction techniq ues were employed. CTDIvol: 26.9 - 33.1 mGy. DLP: 1092 mGy-cm. . LIMITATIONS: Limited evaluation of the pulmonary arteries. FINDINGS: LUNGS AND PLEURA: No masses, infiltrates, pneumothorax. No pleural effusions, calcificati ons. AORTA AND GREAT VESSELS: No aneurysm. Contrast bolus not optimized for the aorta. HEART: No pericardial effusion. No significant coronary artery calcifications. PULMONARY ARTERIES: Main pulmonary arteries are free of clot. Beyond this, limited assessment due to diminished contrast bolus. HILAR AND MEDIASTINAL STRUCTURES: Calcified nodes. No suspicious adenopathy or mass. HARDWARE: None in the chest. UPPER ABDOMEN: Extremely nodular liver. Splenic calcifications consistent with previous granulomatou s disease. Spleen looks mildly prominent at 14 cm. Numerous collateral vessels in the gastrohepatic ligament, findings consistent with cirrhosis with portal hypertension. THYROID AND OTHER SOFT TISSUES: No masses. No adenopathy. BONES: No acute or significant finding. 3D MIPS: Confirm above findings. OTHER: No other significant finding. IMPRESSION: 1. Normal thoracic aorta. 2. Limited assessment of the pulmonary arteries. No central pulmonary embolus detected. 3. Upper abdominal findings consistent with cirrhosis and portal hyperte nsion. COMMENT: Quality ID # [id number]: Final reports with documentation of one or more dose reduction techniques (e.g., Automated exposure control, adjustment of the mA and/or kV according to patient size, use of iterative reconstruction technique) TECHNICAL DOCUMENTATION: JOB ID: [id number] [employer]- All Rights Reserved
[2017-08-24] MEDS ORDERED: LEVOFLOXACIN 750 MG/D5W RTU 750 MG/150 ML RTUPB IV ONE (21:00)
[2017-08-24] MEDS: PANTOPRAZOLE SODIUM 40 MG VIAL IV SCH (21:50)
[2017-08-24 23:15] LABS: APPEARANCE,URINE CLEAR; BILIRUBIN,URINE NEGATIVE (NEGATIVE); COLOR,URINE YELLOW; GLUCOSE, URINE >=500 mg/dL (NEGATIVE); KETONES,URINE NEGATIVE (NEGATIVE); LEUKOCYTE ESTERASE,URINE NEGATIVE (NEGATIVE); NITRITE,URINE NEGATIVE (NEGATIVE); PROTEIN,URINE NEGATIVE (NEGATIVE); URINE SPECIFIC GRAVITY 1.058
[2017-08-24] MEDS ORDERED: IBUPROFEN 800 MG TABLET PO ONE (23:32)
--- NOTE | 2017-08-25 06:44 | EKG REPORT ---
SEVERITY:- OTHERWISE NORMAL ECG - SINUS RHYTHM EARLY PRECORDIAL TRANSITION, UNCHANGED : Confirmed by: Martínez Ellington MD 25-Aug-2017 06:44:01
[2017-08-25 08:57] LABS: ALANINE AMINOTRANSFERASE 64 U/L (21-72); ALBUMIN 2.8 g/dL (3.5-5.0); ALKALINE PHOSPHATASE 99 U/L (38-126); ANION GAP 6 (5-19); ASPARTATE AMINO TRANSFERASE 37 U/L (17-59); BILIRUBIN,DIRECT 0.6 mg/dL (0.0-0.4); BILIRUBIN,TOTAL 1.2 mg/dL (0.2-1.3); BLOOD UREA NITROGEN 13 mg/dL (7-20); CALCIUM 9.5 mg/dL (8.4-10.2); CARBON DIOXIDE 20 mmol/L (22-30); CHLORIDE 105 mmol/L (98-107); CHOLESTEROL 185.32 mg/dL (0-200); GLUCOSE 307 mg/dL (75-110); SODIUM 130.8 mmol/L (137-145); TOTAL PROTEIN 6.1 g/dL (6.3-8.2); TRIGLYCERIDES 38 mg/dL (<150)
[2017-08-25 09:07] LABS: DIRECT LDL 75 mg/dL (<100)
[2017-08-25] MEDS: ASPIRIN 325 MG TABLET, ENT COATED PO SCH (09:30)
[2017-08-25] MEDS: PANTOPRAZOLE SODIUM 40 MG VIAL IV SCH ×2 (09:31→21:32)
[2017-08-25] MEDS: ENOXAPARIN SODIUM INJ 40 MG/0.4 ML DISP.SYRIN SUBCUT SCH (09:31)
[2017-08-25] MEDS ORDERED: LEVOFLOXACIN 750 MG/D5W RTU 750 MG/150 ML RTUPB IV SCH ×2 (10:00→22:00)
[2017-08-25] MEDS: NORMAL SALINE 1000 ML 1,000 ML IV PRN ×2 (10:15→18:47)
[2017-08-25] MEDS: GABAPENTIN 300 MG CAPSULE PO SCH (10:15)
--- NOTE | 2017-08-25 13:34 | Physician Advisory Note ---
Physician Advisor ProgressNote .: [facility], I have reviewed the medical record for this patient. Physician Advisor Statement: Please consider documenting, if you agree: 1. "Possible COPD exacerbation w/Acute bronchitis, evidenced by COOK just walking 10 ft/SOB/cough/purulent sputum, wheezing, ..." 2. "acute CP, suspect due to " (acute cardiac ischemia? pleurisy from #1? ...) 3. "Acute hyponatremia, likely due to , worse today" 4. "Acute metabolic acidosis, suspect due to " (or "Acute Resp Alkalosis due to "?) 5. Medical necessity: If pt not sufficiently improved enough for d/c home today, please document reasons/concerns, & then may change to Inpatient status. (Ex: "Not back to baseline respiratory status", "worsening hyponatremia", "persistent ", "I AM CONCERNED about ", ....) Status: Pt getting close to Acute Resp Failure initially, w/resp distress & accessory muscle use, O2 sats as low as 90% (baseline = ?). Elevated trop-Is concerning for acute cardiac ischemia initially. Anemia, which stresses heart further, especially with any element of hypoxemia/respiratory compromise. Appropriately tx'd, but still Na worse today, w/persistent/recurrent tachycardia , recurrent tachypnea. See above. Thanks! CK
[2017-08-25] MEDS: METHYLPREDNISOLONE INJ 40 MG/1 ML SDV IV SCH ×2 (14:08→21:24)
--- NOTE | 2017-08-25 17:10 | RADIOLOGY REPORT (SQ) ---
EXAM DESCRIPTION: VENOUS BILATERAL LOWER COMPLETED DATE/TIME: 08/25/2017 4:46 pm REASON FOR STUDY: edema lower extremities E09.69 DRUG/CHEM DIABETES MELLITUS W OTH COMPLICATION COMPARISON: CT angio chest 08/24/2017 TECHNIQUE: Dynamic and static tejada scale and color images acquired of both lower extremity venous sy stems. Selected spectral images acquired with additional compression and augmentation maneuvers. Imag es stored on PACS. LIMITATIONS: None. FINDINGS: RIGHT LEG COMMON FEMORAL AND FEMORAL: Normal phasicity, compression and augmentation. No visualized echogenic m aterial on tejada scale. No defects on color images. POPLITEAL: Normal compression and augmentation. No visualized echogenic material on tejada scale. No de fects on color images. CALF VESSELS: Normal compression and augmentation. No visualized echogenic material on tejada scale. No defects on color image. GSV AND SSV: Normal compression. No visualized echogenic material on tejada scale. No defects on color images. ANY DEEP VENOUS INSUFFICIENCY: Not evaluated. ANY EVIDENCE OF POPLITEAL CYST: No. OTHER: No other significant finding. LEFT LEG COMMON FEMORAL AND FEMORAL: Normal phasicity, compression and augmentation. No visualized echogenic m aterial on tejada scale. No defects on color images. POPLITEAL: Normal compression and augmentation. No visualized echogenic material on tejada scale. No de fects on color images. CALF VESSELS: Normal compression and augmentation. No visualized echogenic material on tejada scale. No defects on color images. GSV AND SSV: Normal compression. No visualized echogenic material on tejada scale. No defects on color images. ANY DEEP VENOUS INSUFFICIENCY: Not evaluated. ANY EVIDENCE POPLITEAL CYST: No. OTHER: No other significant finding. IMPRESSION: NO EVIDENCE DVT OR SVT IN EITHER LEG. TECHNICAL DOCUMENTATION: JOB ID: [id number] [employer]- All Rights Reserved
--- NOTE | 2017-08-25 18:11 | PDOC PROGRESS REPORT ---
Subjective Progress Note for:: 08/25/17 Subjective:: Patient seen on rounds. He is resting fairly comfortably in bed. He denies any chest pain, shortness of breath or dyspnea at rest. He states he does become mildly dyspneic with any activity. Continues to have a congested cough and fine expiratory wheezing. Denies any nausea, vomiting or abdominal pain. He denies any diarrhea. Denies any fever chills. He denies any arthralgia or myalgias. Remaining review of systems are negative. Reason For Visit: CHEST PAIN,BRONCHITIS Physical Exam Vital Signs: Temp Pulse Resp BP Pulse Ox 97.8 F 96 18 152/92 H 96 08/25/17 10:24 08/25/17 17:23 08/25/17 17:23 08/25/17 16:01 08/25/17 17:23 General appearance: PRESENT: no acute distress, disheveled, obese, well- developed, well-nourished Head exam: PRESENT: atraumatic, normocephalic Eye exam: PRESENT: conjunctiva pink, EOMI, PERRLA. ABSENT: scleral icterus Ear exam: PRESENT: normal external ear exam Mouth exam: PRESENT: dry mucosa, neck supple, tongue midline Teeth exam: PRESENT: poor dentation Neck exam: ABSENT: carotid bruit, JVD, lymphadenopathy, thyromegaly Respiratory exam: PRESENT: decreased breath sounds, symmetrical, wheezes - expiratory bilaterally Cardiovascular exam: PRESENT: RRR. ABSENT: diastolic murmur, rubs, systolic murmur Pulses: PRESENT: normal carotid pulses Vascular exam: PRESENT: normal capillary refill GI/Abdominal exam: PRESENT: normal bowel sounds, soft. ABSENT: distended, guarding, mass, organolmegaly, rebound, tenderness Rectal exam: PRESENT: deferred Extremities exam: PRESENT: full ROM. ABSENT: calf tenderness, clubbing, pedal edema Neurological exam: PRESENT: alert, awake, oriented to person, oriented to place , oriented to time, oriented to situation, CN II-XII grossly intact. ABSENT: motor sensory deficit Psychiatric exam: PRESENT: appropriate affect, normal mood. ABSENT: homicidal ideation, suicidal ideation Skin exam: PRESENT: dry, intact, warm. ABSENT: cyanosis, rash Results Laboratory Results: 08/25/17 08:18 08/24/17 08/25/17 21:18 08:18 Sodium 130.8 L Potassium 5.0 Chloride 105 Carbon Dioxide 20 L Anion Gap 6 BUN 13 Creatinine 0.60 Est GFR ( Amer) > 60 Est GFR (Non-Af Amer) > 60 Glucose 307 H Calcium 9.5 Total Bilirubin 1.2 AST 37 ALT 64 Alkaline Phosphatase 99 Total Protein 6.1 L Albumin 2.8 L Triglycerides 38 Cholesterol 185.32 LDL Cholesterol Direct 75 VLDL Cholesterol 8.0 L HDL Cholesterol 89 Urine Color YELLOW Urine Appearance CLEAR Urine pH 6.0 Ur Specific [place] 1.058 Urine Protein NEGATIVE Urine Glucose (UA) >=500 H Urine Ketones NEGATIVE Urine Blood NEGATIVE Urine Nitrite NEGATIVE Ur Leukocyte Esterase NEGATIVE Urine WBC (Auto) 1 Urine RBC (Auto) 1 08/25/17 01:02 Sputum Gram Stain - Final 08/25/17 01:02 Sputum Sputum Culture - Final 08/24/17 08/24/17 08/25/17 19:35 19:35 01:40 Creatine Kinase 52 L 63 Troponin I 0.087 NT-Pro-B Natriuret Pep 160 08/25/17 08/25/17 08:18 09:25 Creatine Kinase 78 Troponin I 0.095 NT-Pro-B Natriuret Pep Impressions: Chest X-Ray 08/24/17 14:39 IMPRESSION: NO ACUTE RADIOGRAPHIC FINDING IN THE CHEST. Chest/Abdomen CTA 08/24/17 19:29 IMPRESSION: 1. Normal thoracic aorta. 2. Limited assessment of the pulmonary arteries. No central pulmonary embolus detected. 3. Upper abdominal findings consistent with cirrhosis and portal hypertension. Venous Doppler Study 08/25/17 00:00 IMPRESSION: NO EVIDENCE DVT OR SVT IN EITHER LEG. Assessment & Plan - Diagnosis (1) Acute exacerbation of chronic obstructive pulmonary disease (COPD) Is this a current diagnosis for this admission?: Yes Plan: We will continue nebulizers, IV steroids and Levaquin (2) Hyponatremia Is this a current diagnosis for this admission?: Yes Plan: Patient appears slightly hypovolemic we will hydrate gently and monitor. He is on no medications that cause hyponatremia. He denies any alcohol intake (3) Chest pain Qualifiers: Chest pain type: chest pain on breathing Qualified Code(s): R07.1 - Chest pain on breathing; R07.81 - Pleurodynia Is this a current diagnosis for this admission?: Yes Plan: Pain is atypical for cardiac in nature, most likely secondary to acute bronchitis. Troponins were indeterminate now trending downward. - Time Time Spent with patient: 25-34 minutes Medications reviewed and adjusted accordingly: Yes Anticipated discharge: Home Within: within 24 hours
[2017-08-25] MEDS: CYCLOBENZAPRINE HCL 10 MG TABLET PO PRN (18:47)
[2017-08-25] MEDS ORDERED: ATORVASTATIN CALCIUM 80 MG TABLET PO SCH (22:00)
[2017-08-25] MEDS ORDERED: GABAPENTIN 300 MG CAPSULE PO SCH (22:00)
[2017-08-26] MEDS: CYCLOBENZAPRINE HCL 10 MG TABLET PO PRN (00:47)
[2017-08-26 05:27] LABS: ALANINE AMINOTRANSFERASE 68 U/L (21-72); ALBUMIN 2.8 g/dL (3.5-5.0); ALKALINE PHOSPHATASE 95 U/L (38-126); ANION GAP 6 (5-19); ASPARTATE AMINO TRANSFERASE 38 U/L (17-59); BILIRUBIN,DIRECT 0.7 mg/dL (0.0-0.4); BILIRUBIN,TOTAL 1.2 mg/dL (0.2-1.3); BLOOD UREA NITROGEN 15 mg/dL (7-20); CARBON DIOXIDE 20 mmol/L (22-30); CHLORIDE 109 mmol/L (98-107); GLUCOSE 202 mg/dL (75-110); POTASSIUM 4.6 mmol/L (3.6-5.0); SODIUM 135.3 mmol/L (137-145); TOTAL PROTEIN 6.2 g/dL (6.3-8.2)
[2017-08-26] MEDS: METHYLPREDNISOLONE INJ 40 MG/1 ML SDV IV SCH (05:52)
[2017-08-26] MEDS: NORMAL SALINE 1000 ML 1,000 ML IV PRN (05:52)
[2017-08-26] MEDS: ENOXAPARIN SODIUM INJ 40 MG/0.4 ML DISP.SYRIN SUBCUT SCH (10:03)
[2017-08-26] MEDS: GABAPENTIN 300 MG CAPSULE PO SCH (10:03)
[2017-08-26] MEDS: PANTOPRAZOLE SODIUM 40 MG VIAL IV SCH (10:03)
[2017-08-26] MEDS: ASPIRIN 325 MG TABLET, ENT COATED PO SCH (10:03)
[2017-08-26 11:33] VITALS: BP 138/76
--- NOTE | 2017-08-26 13:54 | PDOC DISCHARGE SUMMARY ---
General - Admit/Disc Date/PCP Admission Date/Primary Care Provider: 08/24/17 17:38 EMILY AYALA NP Discharge Date: 08/26/17 - Discharge Diagnosis (1) Acute bronchitis Is this a current diagnosis for this admission?: Yes (2) Acute exacerbation of chronic obstructive pulmonary disease (COPD) Is this a current diagnosis for this admission?: Yes (3) Chest pain Is this a current diagnosis for this admission?: Yes - Additional Information Resuscitation Status: Do Not Intubate Home Medications: Cyclobenzaprine HCl 10 mg PO TIDP PRN 08/24/17 Gabapentin 300 mg PO DAILY 08/24/17 Gabapentin 600 mg PO QHS 08/24/17 Diclofenac Sodium [Voltaren] 1 gm TOP DAILYP PRN 08/25/17 History of Present Illness History of Present Illness: FABIO MURILLO is a 57 year old presented with complaint of increasing shortness of breath and chest pain. Patient also had a productive cough. Patient was admitted for COPD exacerbation acute bronchitis. Hospital Course Hospital Course: Patient was started on on Levaquin, Solu-Medrol and nebulizers for his COPD exacerbation and acute bronchitis. Patient also received aspirin and statin for his chest pain. Patient initial troponin was mildly elevated at 0.095. Blood culture was growing gram-positive cocci in clusters. This was 1 out of 2 bottles. Patient was apparently feeling better and decided to get leave AGAINST MEDICAL ADVICE. He was not seen by attending physician prior to this. Physical Exam Vital Signs: Temp Pulse Resp BP Pulse Ox 98.2 F 88 16 138/76 H 98 08/26/17 11:33 08/26/17 11:33 08/26/17 11:33 08/26/17 11:33 08/26/17 11:33 Intake & Output 08/25/17 08/26/17 08/27/17 06:59 06:59 06:59 Intake Total 2160 Output Total 1050 Balance 1110 Weight 121.7 kg Additional comments: No physical exam was completed as patient left AGAINST MEDICAL ADVICE. Results Laboratory Results: 08/26/17 04:11 08/26/17 04:11 Sodium 135.3 L Potassium 4.6 Chloride 109 H Carbon Dioxide 20 L Anion Gap 6 BUN 15 Creatinine 0.59 Est GFR ( Amer) > 60 Est GFR (Non-Af Amer) > 60 Glucose 202 H Calcium 9.0 Total Bilirubin 1.2 AST 38 ALT 68 Alkaline Phosphatase 95 Total Protein 6.2 L Albumin 2.8 L 08/25/17 01:02 Sputum Gram Stain - Final 08/25/17 01:02 Sputum Sputum Culture - Final 08/24/17 08/24/17 08/25/17 19:35 19:35 01:40 Creatine Kinase 52 L 63 Troponin I 0.087 NT-Pro-B Natriuret Pep 160 08/25/17 08/25/17 08:18 09:25 Creatine Kinase 78 Troponin I 0.095 NT-Pro-B Natriuret Pep Impressions: Chest X-Ray 08/24/17 14:39 IMPRESSION: NO ACUTE RADIOGRAPHIC FINDING IN THE CHEST. Chest/Abdomen CTA 08/24/17 19:29 IMPRESSION: 1. Normal thoracic aorta. 2. Limited assessment of the pulmonary arteries. No central pulmonary embolus detected. 3. Upper abdominal findings consistent with cirrhosis and portal hypertension. Venous Doppler Study 08/25/17 00:00 IMPRESSION: NO EVIDENCE DVT OR SVT IN EITHER LEG. Qualifiers - * PATEINT BEING DISCHARGED WITH ANY OF THE FOLLOWING DIAGNOSIS?: No Plan Time Spent: Less than 30 Minutes - Patient left AGAINST MEDICAL ADVICE
[2017-08-26] MEDS ORDERED: IPRATROPIUM/ALBUTEROL 0.5-2.5 MG/3 ML AMPUL NEB SCH (14:00)
[2017-08-26] MEDS ORDERED: BUDESONIDE NEB 0.5 MG/2 ML AMPUL NEB SCH (20:00)
[2017-08-26] MEDS ORDERED: MONTELUKAST SODIUM 10 MG TABLET PO SCH (22:00)
== END 2017-08-26 11:50 | disposition left against medical advice (07) ==
LOC: ER 14:38 → EH 17:38 → 3N 08-25 17:34
PROVIDERS: ADMIT Internal Medicine; ATTEND Internal Medicine
DX: J44.0 Chronic obstructive pulmonary disease with (acute) lower respiratory infection (principal); J20.9 Acute bronchitis, unspecified; J44.1 Chronic obstructive pulmonary disease with (acute) exacerbation; R07.89 Other chest pain; R07.1 Chest pain on breathing; R07.81 Pleurodynia; F41.9 Anxiety disorder, unspecified; F32.9 Major depressive disorder, single episode, unspecified; E87.1 Hypo-osmolality and hyponatremia; R20.0 Anesthesia of skin; R20.2 Paresthesia of skin; R00.0 Tachycardia, unspecified; R79.89 Other specified abnormal findings of blood chemistry; Z79.899 Other long term (current) drug therapy; Z53.21 Procedure and treatment not carried out due to patient leaving prior to being seen by health care provider; Z87.01 Personal history of pneumonia (recurrent); Z87.891 Personal history of nicotine dependence; Z79.01 Long term (current) use of anticoagulants
CPT/HCPCS: 93005 ×2; 94640 ×2; 99285; 96374; 36415 ×3; 87040; 87086; 87205; 82553; 82550 ×2; 83735; 84100; 85025; 87077; 87088; 80053 ×3; 81001; 84484 ×2; 87186; 83036; 85379; 80061; 83880; 93970; 71045; 71275; 93010 ×2; G0378 ×3; A9270 ×9; J2920 ×2; J2930; J1650 ×2; C9113 ×3; J7030 ×2; J1956 ×2; J7620; S0164

== ENCOUNTER 2017-08-31 15:01 | Inpatient (IN) | payer MEDICARE, MEDICAID ==
[2017-08-31 15:15] LABS: ABSOLUTE BASOPHILS # (AUTO) 0.1 10^3/uL (0.0-0.2); ABSOLUTE EOSINOPHILS # (AUTO) 0.6 10^3/uL (0.0-0.6); ABSOLUTE LYMPHOCYTES (AUTO) 1.8 10^3/uL (0.5-4.7); ABSOLUTE MONOCYTES (AUTO) 1.9 10^3/uL (0.1-1.4); ABSOLUTE NEUT (AUTO) 7.5 10^3/uL (1.7-8.2); BASOPHILS % (AUTO) 0.6 % (0-2); EOSINOPHILS % (AUTO) 5.2 % (0-6); HEMATOCRIT 42.1 % (37.9-51.0); HEMOGLOBIN 13.9 g/dL (13.5-17.0); LYMPHOCYTES % (AUTO) 15.2 % (13-45); MEAN CORPUSCULAR HEMOGLOBIN 28.3 pg (27.0-33.4); MEAN CORPUSCULAR HGB CONC 33.1 g/dL (32.0-36.0); MEAN CORPUSCULAR VOLUME 85 fl (80-97); MONOCYTES % (AUTO) 16.2 % (3-13); PLATELET COUNT 104 10^3/uL (150-450); RED BLOOD COUNT 4.93 10^6/uL (4.35-5.55); RED CELL DISTRIBUTION WIDTH 18.3 % (11.5-14.0); SEGMENTED NEUTROPHILS % (AUTO) 62.8 % (42-78); TOTAL CELLS COUNTED % (AUTO) 100 %; WHITE BLOOD COUNT 11.9 10^3/uL (4.0-10.5)
--- NOTE | 2017-08-31 15:27 | ER Document Report ---
ED General - General Stated Complaint: SHORTNESS OF BREATH Time Seen by Provider: 08/31/17 15:06 Mode of Arrival: Ambulatory Information source: Patient Notes: Patient is a 57-year-old male with past medical history as recorded including COPD and hepatitis cirrhosis who presents today stating some shortness of breath and some chest discomfort. Patient was admitted on 08/24/2017 and stayed 2 days and left AGAINST MEDICAL ADVICE for what appears to be a COPD exacerbation. The discharge summary from the previous admission as recorded: "Patient was started on on Levaquin, Solu-Medrol and nebulizers for his COPD exacerbation and acute bronchitis. Patient also received aspirin and statin for his chest pain. Patient initial troponin was mildly elevated at 0.095. Blood culture was growing gram-positive cocci in clusters. This was 1 out of 2 bottles. Patient was apparently feeling better and decided to get leave AGAINST MEDICAL ADVICE. He was not seen by attending physician prior to this." Patient states since being discharged she has had some continued shortness of breath and chest discomfort. He also states bilateral lower extremities have increased in size. He denies any fevers, diarrhea, or vomiting. TRAVEL OUTSIDE OF THE [place] IN LAST 30 DAYS: No - HPI Onset: Other - See above Severity: Mild Pain Level: Denies Associated symptoms: Other - See above Exacerbated by: Denies Relieved by: Denies Similar symptoms previously: No Recently seen / treated by doctor: No - Related Data Allergies/Adverse Reactions: poison jarrett extract Allergy (Verified 08/25/17 08:27) poison sumac extract Allergy (Verified 08/25/17 08:27) Past Medical History - General Information source: Patient - Social History Smoking Status: Unknown if Ever Smoked Cigarette use (# per day): No Chew tobacco use (# tins/day): No Smoking Education Provided: No Frequency of alcohol use: None Family History: Reviewed & Not Pertinent - Past Medical History Cardiac Medical History: Denies: Hx Atrial Fibrillation, Hx Congestive Heart Failure, Hx Coronary Artery Disease, Hx Heart Attack, Hx Hypercholesterolemia, Hx Hypertension, Hx Peripheral Vascular Disease, Hx Pulmonary Embolism, Hx Heart Murmur Pulmonary Medical History: Reports: Hx Pneumonia - , 07/2014? Denies: Hx Asthma, Hx Bronchitis, Hx COPD, Hx Respiratory Failure, Hx Sleep Apnea, Hx Tuberculosis Neurological Medical History: Denies: Hx Cerebrovascular Accident, Hx Seizures Endocrine Medical History: Denies: Hx Graves' Disease, Hx Hyperthyroidism, Hx Hypothyroidism Renal/ Medical History: Denies: Hx Benign Prostatic Hyperplasia, Hx End Stage Renal Disease, Hx Kidney Stones, Hx Peritoneal Dialysis Malignancy Medical History: Denies Hx Leukemia, Denies Hx Lung Cancer GI Medical History: Reports: Hx Ulcer - as a child. Denies: Hx Crohn's Disease , Hx Gastroesophageal Reflux Disease, Hx Hiatal Hernia, Hx Irritable Bowel, Hx Liver Failure - Cirrhosis 2014 Hep C negative?, Hx Pancreatitis Musculoskeltal Medical History: Reports Hx Arthritis, Denies Hx Fibromyalgia, Denies Hx Multiple Sclerosis, Denies Hx Muscular Dystrophy Psychiatric Medical History: Reports: Hx Depression Denies: Hx Bipolar Disorder, Hx Dementia, Hx Post Traumatic Stress Disorder, Hx Schizophrenia Traumatic Medical History: Reports: Hx Fractures - bilateral hands, right wrist , broken ribs, left tibia/fibula Infectious Medical History: Denies: Hx HIV Past Surgical History: Reports: Hx Orthopedic Surgery - LLE. Denies: Hx Appendectomy, Hx Bowel Surgery, Hx Cholecystectomy, Hx Colostomy, Hx Coronary Artery Bypass Graft, Hx Gastric Bypass Surgery, Hx Herniorrhaphy, Hx Pacemaker, Hx Tonsillectomy - Immunizations Hx Diphtheria, Pertussis, Tetanus Vaccination: Yes Review of Systems - Review of Systems Constitutional: denies: Fever EENT: denies: Eye discharge, Nose discharge Cardiovascular: denies: Chest pain, Palpitations Respiratory: Short of breath. denies: Hurts to breathe, Hemoptysis Gastrointestinal: denies: Vomiting Genitourinary: denies: Dysuria Musculoskeletal: Leg swelling Skin: Other - no hives. denies: Rash Neurological/Psychological: Other - no slurred speech -: Yes All other systems reviewed and negative Physical Exam - Vital signs Vitals: Temp Pulse Resp BP Pulse Ox 98 F 95 16 142/87 H 97 08/31/17 15:07 08/31/17 15:07 08/31/17 15:07 08/31/17 15:07 08/31/17 15:07 Notes: Reviewed vital signs and nursing note as charted by RN. CONSTITUTIONAL: Alert and oriented and responds appropriately to questions. Well -appearing; well-nourished HEAD: Normocephalic; atraumatic EYES: PERRL; Conjunctivae clear, sclerae non-icteric ENT: Normal nose; no rhinorrhea; moist mucous membranes; pharynx without lesions noted NECK: Supple without meningismus; non-tender; no cervical lymphadenopathy, no masses CARD: Regular rate and rhythm; no murmurs, no clicks, no rubs, no gallops; symmetric distal pulses RESP: Normal chest excursion without splinting or tachypnea; breath sounds clear and equal bilaterally; no wheezes, no rhonchi, no rales ABD/GI: Normal bowel sounds; distended nontender abdomen with ecchymosis from what appears to be the previous Lovenox shots according to the patient BACK: The back appears normal and is non-tender to palpation, there is no CVA tenderness EXT: Normal ROM in all joints; non-tender to palpation; no cyanosis, no effusions, 2+ pitting edema to bilateral shins SKIN: Scant macules scattered to all parts of the body NEURO: CN II through XII are intact. Moves all extremities equally; Motor and sensory function intact PSYCH: The patient's mood and manner are appropriate. Grooming and personal hygiene are appropriate. Course - Re-evaluation Re-evalutation: 08/31/17 15:25 We will obtain a repeat cardiac enzyme level, BNP, x-ray of the chest, EKG, a coagulation profile, and reassess. I believe the patient may be having a combination of some increased congestive heart failure, increased ascites, all making it difficult to breathe. Vital signs as recorded. Patient had a CTA of his chest when he was admitted last week showing no pulmonary emboli EKG shows a heart of 97, normal sinus rhythm, normal axis, no obvious ST elevation or depression. 08/31/17 16:05 X-ray of the chest as recorded. It appears now that the patient has a right pleural effusion. I do believe that the patient may benefit also from a therapeutic paracentesis. I will talk to the surgeon Dr. Bean about this. Patient will be admitted to the hospitalist. - Vital Signs Vital signs: Temp Pulse Resp BP Pulse Ox 98 F 95 16 142/87 H 93 08/31/17 15:07 08/31/17 15:07 08/31/17 15:07 08/31/17 15:07 08/31/17 15:45 - Laboratory Result Diagrams: 08/31/17 14:50 08/31/17 14:50 Laboratory results interpreted by me: 08/31/17 08/31/17 14:50 14:50 WBC 11.9 H RDW 18.3 H Plt Count 104 L Monocytes % 16.2 H Absolute Monocytes 1.9 H Sodium 135.1 L Carbon Dioxide 20 L Glucose 136 H Direct Bilirubin 0.7 H ALT 76 H Albumin 2.9 L Discharge - Discharge Clinical Impression: SOB (shortness of breath), Pleural effusion, right, Chest discomfort Condition: Fair Disposition: ADMITTED INPATIENT Admitting Provider: Hospitalist Unit Admitted: Telemetry
[2017-08-31 15:28] LABS: INTERNATIONAL RATION (INR) 1.13; PROTHROMBIN TIME 15.3 SEC (11.4-15.4)
[2017-08-31 15:41] LABS: ALANINE AMINOTRANSFERASE 76 U/L (21-72); ALBUMIN 2.9 g/dL (3.5-5.0); ALKALINE PHOSPHATASE 102 U/L (38-126); ANION GAP 9 (5-19); ASPARTATE AMINO TRANSFERASE 58 U/L (17-59); BILIRUBIN,DIRECT 0.7 mg/dL (0.0-0.4); BLOOD UREA NITROGEN 11 mg/dL (7-20); CALCIUM 8.5 mg/dL (8.4-10.2); CARBON DIOXIDE 20 mmol/L (22-30); CHLORIDE 106 mmol/L (98-107); CREATINE KINASE 73 U/L (55-170); GLUCOSE 136 mg/dL (75-110); SODIUM 135.1 mmol/L (137-145); TOTAL PROTEIN 6.6 g/dL (6.3-8.2)
[2017-08-31 15:43] LABS: CREATINE KINASE MB 1.23 ng/mL (<4.55)
[2017-08-31 15:45] LABS: TROPONIN I 0.099 ng/mL
--- NOTE | 2017-08-31 16:03 | EKG REPORT ---
SEVERITY:- BORDERLINE ECG - SINUS RHYTHM LA ABNORMALITY. : Confirmed by: Martínez Ellington MD 31-Aug-2017 16:03:37
[2017-08-31] MEDS ORDERED: ASPIRIN 325 MG TABLET PO ONE (16:08)
--- NOTE | 2017-08-31 16:16 | RADIOLOGY REPORT (SQ) ---
EXAM DESCRIPTION: CHEST SINGLE VIEW COMPLETED DATE/TIME: 08/31/2017 4:06 pm REASON FOR STUDY: bed 7 db COMPARISON: Chest radiograph 08/24/2017 EXAM PARAMETERS: NUMBER OF VIEWS: One view. TECHNIQUE: Single frontal radiographic view of the chest acquired. RADIATION DOSE: NA LIMITATIONS: None. FINDINGS: LUNGS AND PLEURA: Interval development of a large right pleural effusion and extensive con solidation at the right base. Left lung is clear. MEDIASTINUM AND HILAR STRUCTURES: No masses. Contour normal. HEART AND VASCULAR STRUCTURES: Heart normal in size. Normal vasculature. BONES: No acute findings. HARDWARE: None in the chest. OTHER: No other significant finding. IMPRESSION: Large right pleural effusion and extensive pneumonia at the right lung base. TECHNICAL DOCUMENTATION: JOB ID: [id number] [employer]- All Rights Reserved Reading location - IP/workstation name: [email or web address]
[2017-08-31 16:58] LABS: APPEARANCE,URINE CLEAR; BILIRUBIN,URINE NEGATIVE (NEGATIVE); COLOR,URINE AMBER; GLUCOSE, URINE NEGATIVE (NEGATIVE); KETONES,URINE NEGATIVE (NEGATIVE); LEUKOCYTE ESTERASE,URINE NEGATIVE (NEGATIVE); NITRITE,URINE NEGATIVE (NEGATIVE); PROTEIN,URINE NEGATIVE (NEGATIVE)
[2017-08-31] MEDS ORDERED: TEMAZEPAM 7.5 MG CAPSULE PO PRN (17:11)
[2017-08-31] MEDS ORDERED: ONDANSETRON HCL INJ/PF 4 MG/2 ML SDV IV PRN (17:11)
[2017-08-31] MEDS ORDERED: FENTANYL CITRATE INJ/PF 100 MCG/2 ML AMPUL IV ONE (17:31)
[2017-08-31] MEDS ORDERED: VANCOMYCIN PER PHARMACY MC NR (17:45)
--- NOTE | 2017-08-31 17:47 | PDOC H&P ---
History of Present Illness Admission Date/PCP: 08/31/17 16:19 EMILY AYALA NP Patient complains of: Difficulty breathing and shortness of breath, abdominal pain and swelling and leg swelling History of Present Illness: FABIO MURILLO is a 57 year old male Patient was admitted with difficulty breathing and shortness of breath which has been progressive over the last week. He was actually in hospital about a week ago where he was treated for COPD exacerbation and pneumonia. It appears patient signed out AGAINST MEDICAL ADVICE after 2 days of treatment. He returns today with increased abdominal swelling as well as swelling in his legs and progressive shortness of breath. Patient appears to have a massive ascites which he says was unchanged from last week when he was here. Interestingly enough CT scan of the abdomen and chest done just 1 week ago showed no evidence of any infiltrates or pleural effusion and no mention of ascites although he did mention extremely nodular liver with splenic calcifications consistent with granulomatous disease. There was splenomegaly with numerous collateral vessels of the gastrohepatic ligament, findings consistent with cirrhosis with portal hypertension. Patient does complain of abdominal pain but no fever nausea vomiting. He denies any prior history of paracentesis though appears he has had a thoracentesis before. Patient states that he has not been told before that he had cirrhosis although I question this statement. He gives a prior history of hepatitis C and says he was treated and was told that he had been cured. It is unclear to me from the chart if patient actually had this massive amount of ascites or any ascites at all on clinical exam and CT scan from last week as above did not mention evidence of ascites. Patient did say that she did have this abdominal swelling last week. He will need a GI consult and have confirmed with the surgical list that a paracentesis can be performed as well as a paracentesis by interventional radiologist if needed. I will be concerned about underlying malignant disease considering that this patient's albumin is really not that bad and he is not even coagulopathic. I will hold off on Lovenox pending paracentesis and thoracentesis both diagnostic and therapeutic. Past Medical History Cardiac Medical History: Denies: Atrial Fibrillation, Congestive Heart Failure, Coronary Artery Disease, Myocardial Infarction, Hyperlipidema, Hypertension, Peripheral Vascular Disease, Pulmonary Embolism, Heart Murmur Pulmonary Medical History: Reports: Pneumonia - s, 07/2014? Denies: Asthma, Bronchitis, Chronic Obstructive Pulmonary Disease (COPD), Respiratory Failure, Sleep Apnea, Tuberculosis Neurological Medical History: Denies: Seizures Endocrine Medical History: Denies: Hyperthyroidism, Hypothyroidism Renal/ Medical History: Denies: End Stage Renal Disease Malignancy Medical History: Denies: Breast Cancer, Cervical Cancer, Leukemia, Lung Cancer, Ovarian Cancer GI Medical History: Reports: Cirrhosis Denies: Crohn's Disease, Gastroesophageal Reflux Disease, Hiatal Hernia Musculoskeltal Medical History: Reports: Arthritis Denies: Fibromyalgia Psychiatric Medical History: Reports: Depression Denies: Bipolar Disorder, Dementia, Post Traumatic Stress Disorder Hematology: Reports: Anemia - platelets run low Denies: Hemophilia, Sickle Cell Disease Infectious Medical History: Reports: Hepatitis C Denies: HIV Past Surgical History Past Surgical History: Reports: Orthopedic Surgery - LLE Denies: Appendectomy, Cholecystectomy, Colostomy, Coronary Artery Bypass Graft, Gastric Bypass Surgery, Herniorrhaphy, Pacemaker, Tonsillectomy Social History Information Source: Patient Lives with: Family Smoking Status: Former Smoker Frequency of Alcohol Use: None - Stopped drinking years ago Hx Recreational Drug Use: No Drugs: None Hx Prescription Drug Abuse: No Past Social History Note: 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[employer] Resuscitation Status: Full Code Family History Family History: None, Reviewed & Not Pertinent Parental Family History Reviewed: Yes - Not significant Children Family History Reviewed: Unknown Sibling(s) Family History Reviewed.: Unknown Medication/Allergy Home Medications: Cyclobenzaprine HCl 10 mg PO TIDP PRN 08/24/17 Gabapentin 300 mg PO DAILY 08/24/17 Gabapentin 600 mg PO QHS 08/24/17 Diclofenac Sodium [Voltaren] 1 gm TOP DAILYP PRN 08/25/17 Allergies/Adverse Reactions: poison jarrett extract Allergy (Verified 08/25/17 08:27) poison sumac extract Allergy (Verified 08/25/17 08:27) Review of Systems Constitutional: PRESENT: weakness, weight gain. ABSENT: fever(s) Eyes: ABSENT: visual disturbances Ears: ABSENT: hearing changes Cardiovascular: PRESENT: dyspnea on exertion, edema, orthropnea. ABSENT: chest pain, palpitations Respiratory: PRESENT: cough, dyspnea Gastrointestinal: PRESENT: abdominal pain. ABSENT: coffee ground emesis, heartburn, hematemesis, hematochezia Genitourinary: PRESENT: as per HPI Musculoskeletal: PRESENT: as per HPI Integumentary: PRESENT: as per HPI Neurological: PRESENT: as per HPI Psychiatric: ABSENT: anxiety, depression, homidical ideation, suicidal ideation Endocrine: ABSENT: cold intolerance, heat intolerance, polydipsia, polyuria Physical Exam Vital Signs: Temp Pulse Resp BP Pulse Ox 98.1 F 95 23 H 136/79 H 96 08/31/17 16:48 08/31/17 15:07 08/31/17 16:48 08/31/17 16:48 08/31/17 16:48 General appearance: PRESENT: no acute distress, obese Head exam: PRESENT: atraumatic Eye exam: PRESENT: PERRLA. ABSENT: conjunctival injection Ear exam: PRESENT: normal external ear exam Neck exam: ABSENT: carotid bruit, JVD, lymphadenopathy, thyromegaly Respiratory exam: PRESENT: decreased breath sounds, rhonchi. ABSENT: accessory muscle use, chest wall tenderness, rales, wheezes Cardiovascular exam: PRESENT: RRR. ABSENT: diastolic murmur, rubs, systolic murmur Pulses: PRESENT: normal dorsalis pedis pul GI/Abdominal exam: PRESENT: ascites, diminished bowel sounds, normal bowel sounds, tenderness - mild R sided Rectal exam: PRESENT: deferred Extremities exam: PRESENT: other - 3plus edema. ABSENT: calf tenderness, clubbing Musculoskeletal exam: PRESENT: ambulatory, full ROM Neurological exam: PRESENT: alert, awake, oriented to person, oriented to place , oriented to time, oriented to situation, CN II-XII grossly intact. ABSENT: motor sensory deficit Skin exam: ABSENT: cyanosis, jaundice Results Laboratory Results: Laboratory 08/31/17 08/31/17 08/31/17 14:50 14:50 14:50 WBC 11.9 H RBC 4.93 Hgb 13.9 Hct 42.1 MCV 85 MCH 28.3 MCHC 33.1 RDW 18.3 H Plt Count 104 L Seg Neutrophils % 62.8 Lymphocytes % 15.2 Monocytes % 16.2 H Eosinophils % 5.2 Basophils % 0.6 Absolute Neutrophils 7.5 Absolute Lymphocytes 1.8 Absolute Monocytes 1.9 H Absolute Eosinophils 0.6 Absolute Basophils 0.1 PT INR Sodium 135.1 L Potassium 4.0 Chloride 106 Carbon Dioxide 20 L Anion Gap 9 BUN 11 Creatinine 0.57 Est GFR ( Amer) > 60 Est GFR (Non-Af Amer) > 60 Glucose 136 H Calcium 8.5 Total Bilirubin 1.0 Direct Bilirubin 0.7 H Neonat Total Bilirubin Not Reportable Neonat Direct Bilirubin Not Reportable Neonat Indirect Bili Not Reportable AST 58 ALT 76 H Alkaline Phosphatase 102 Creatine Kinase 73 CK-MB (CK-2) 1.23 Troponin I 0.099 NT-Pro-B Natriuret Pep Total Protein 6.6 Albumin 2.9 L Urine Color Urine Appearance Urine pH Ur Specific [place] Urine Protein Urine Glucose (UA) Urine Ketones Urine Blood Urine Nitrite Urine Bilirubin Urine Urobilinogen Ur Leukocyte Esterase Urine WBC (Auto) Urine RBC (Auto) Urine Mucus (Auto) Urine Ascorbic Acid 08/31/17 08/31/17 08/31/17 14:50 14:50 14:50 WBC RBC Hgb Hct MCV MCH MCHC RDW Plt Count Seg Neutrophils % Lymphocytes % Monocytes % Eosinophils % Basophils % Absolute Neutrophils Absolute Lymphocytes Absolute Monocytes Absolute Eosinophils Absolute Basophils PT 15.3 INR 1.13 Sodium Potassium Chloride Carbon Dioxide Anion Gap BUN Creatinine Est GFR ( Amer) Est GFR (Non-Af Amer) Glucose Calcium Total Bilirubin Cancelled Direct Bilirubin Cancelled Neonat Total Bilirubin Cancelled Neonat Direct Bilirubin Cancelled Neonat Indirect Bili Cancelled AST Cancelled ALT Cancelled Alkaline Phosphatase Cancelled Creatine Kinase CK-MB (CK-2) Troponin I NT-Pro-B Natriuret Pep 112 Total Protein Cancelled Albumin Cancelled Urine Color Urine Appearance Urine pH Ur Specific [place] Urine Protein Urine Glucose (UA) Urine Ketones Urine Blood Urine Nitrite Urine Bilirubin Urine Urobilinogen Ur Leukocyte Esterase Urine WBC (Auto) Urine RBC (Auto) Urine Mucus (Auto) Urine Ascorbic Acid 08/31/17 16:40 WBC RBC Hgb Hct MCV MCH MCHC RDW Plt Count Seg Neutrophils % Lymphocytes % Monocytes % Eosinophils % Basophils % Absolute Neutrophils Absolute Lymphocytes Absolute Monocytes Absolute Eosinophils Absolute Basophils PT INR Sodium Potassium Chloride Carbon Dioxide Anion Gap BUN Creatinine Est GFR ( Amer) Est GFR (Non-Af Amer) Glucose Calcium Total Bilirubin Direct Bilirubin Neonat Total Bilirubin Neonat Direct Bilirubin Neonat Indirect Bili AST ALT Alkaline Phosphatase Creatine Kinase CK-MB (CK-2) Troponin I NT-Pro-B Natriuret Pep Total Protein Albumin Urine Color ZURDO Urine Appearance CLEAR Urine pH 6.0 Ur Specific [place] 1.020 Urine Protein NEGATIVE Urine Glucose (UA) NEGATIVE Urine Ketones NEGATIVE Urine Blood NEGATIVE Urine Nitrite NEGATIVE Urine Bilirubin NEGATIVE Urine Urobilinogen 4.0 H Ur Leukocyte Esterase NEGATIVE Urine WBC (Auto) 2 Urine RBC (Auto) 2 Urine Mucus (Auto) RARE Urine Ascorbic Acid NEGATIVE Impressions: Chest X-Ray 08/31/17 15:03 IMPRESSION: Large right pleural effusion and extensive pneumonia at the right lung base. Assessment & Plan - Diagnosis (1) Cirrhosis of liver Qualifiers: Hepatic cirrhosis type: unspecified hepatic cirrhosis Ascites presence: with ascites Qualified Code(s): K74.60 - Unspecified cirrhosis of liver Is this a current diagnosis for this admission?: Yes Plan: Please see discussions above. Will cover patient for possible SBP (2) Pneumonia Qualifiers: Pneumonia type: due to unspecified organism Laterality: right Lung location: lower lobe of lung Qualified Code(s): J18.1 - Lobar pneumonia, unspecified organism Is this a current diagnosis for this admission?: Yes Plan: Patient was recently in hospital for COPD exacerbation and was treated with Levaquin. CT scan at that time showed no evidence of any infiltrates. I will add vancomycin for possible healthcare associated pneumonia however this really does not appear to be the case. Will de-escalate as per response (3) Pleural effusion, right Is this a current diagnosis for this admission?: Yes Plan: This is likely secondary to the massive ascites. Interventional radiologist to be consulted for thoracentesis (4) SOB (shortness of breath) Is this a current diagnosis for this admission?: Yes Plan: This is secondary to the pleural effusion and this will improve with the thoracentesis. At this point this is not urgent and can likely wait till tomorrow (5) Thrombocytopenia Is this a current diagnosis for this admission?: Yes Plan: Secondary to liver disease. Will monitor closely - Time Time Spent: 50 to 70 Minutes Medications reviewed and adjusted accordingly: Yes Anticipated discharge: Home Within: within 72 hours - Inpatient Certification Medical Necessity: Need Close Monitoring Due to Risk of Patient Decompensation, Need for IV Antibiotics, Risk of Complication if Not Cared For in Hospital
[2017-08-31] MEDS: CEFTRIAXONE 2 GM/D5W RTU 2 GM/50 ML RTUPB IV SCH (20:00)
[2017-08-31] MEDS ORDERED: VANCOMYCIN HCL INJ 1000 MG VIAL IV PRN (20:35)
[2017-08-31] MEDS ORDERED: VANCOMYCIN HCL 2,000 MG in DEXTROSE 5%-WATER 500 ML IV ONE (22:00)
[2017-08-31] MEDS: FENTANYL CITRATE INJ/PF 100 MCG/2 ML AMPUL IV PRN (23:02)
[2017-08-31] MEDS: IPRATROPIUM/ALBUTEROL 0.5-2.5 MG/3 ML AMPUL NEB PRN (23:02)
[2017-08-31] MEDS: GUAIFENESIN SYRP 200 MG/10 ML UDC PO PRN (23:02)
[2017-09-01 04:40] LABS: INTERNATIONAL RATION (INR) 1.13; PROTHROMBIN TIME 15.3 SEC (11.4-15.4)
[2017-09-01 05:01] LABS: ABSOLUTE BASOPHILS # (AUTO) 0.1 10^3/uL (0.0-0.2); ABSOLUTE EOSINOPHILS # (AUTO) 0.5 10^3/uL (0.0-0.6); ABSOLUTE LYMPHOCYTES (AUTO) 1.3 10^3/uL (0.5-4.7); ABSOLUTE MONOCYTES (AUTO) 1.6 10^3/uL (0.1-1.4); ABSOLUTE NEUT (AUTO) 7.2 10^3/uL (1.7-8.2); BASOPHILS % (AUTO) 0.8 % (0-2); EOSINOPHILS % (AUTO) 4.4 % (0-6); HEMATOCRIT 41.5 % (37.9-51.0); HEMOGLOBIN 13.9 g/dL (13.5-17.0); LYMPHOCYTES % (AUTO) 12.4 % (13-45); MEAN CORPUSCULAR HEMOGLOBIN 28.5 pg (27.0-33.4); MEAN CORPUSCULAR HGB CONC 33.5 g/dL (32.0-36.0); MEAN CORPUSCULAR VOLUME 85 fl (80-97); MONOCYTES % (AUTO) 14.8 % (3-13); RED BLOOD COUNT 4.88 10^6/uL (4.35-5.55); RED CELL DISTRIBUTION WIDTH 18.1 % (11.5-14.0); SEGMENTED NEUTROPHILS % (AUTO) 67.6 % (42-78); TOTAL CELLS COUNTED % (AUTO) 100 %; WHITE BLOOD COUNT 10.7 10^3/uL (4.0-10.5)
[2017-09-01 05:05] LABS: ALANINE AMINOTRANSFERASE 80 U/L (21-72); ALBUMIN 2.8 g/dL (3.5-5.0); ALKALINE PHOSPHATASE 101 U/L (38-126); ANION GAP 10 (5-19); ASPARTATE AMINO TRANSFERASE 64 U/L (17-59); BILIRUBIN,DIRECT 0.6 mg/dL (0.0-0.4); BILIRUBIN,TOTAL 1.3 mg/dL (0.2-1.3); BLOOD UREA NITROGEN 11 mg/dL (7-20); CALCIUM 8.7 mg/dL (8.4-10.2); CARBON DIOXIDE 23 mmol/L (22-30); CHLORIDE 103 mmol/L (98-107); GLUCOSE 151 mg/dL (75-110); POTASSIUM 3.9 mmol/L (3.6-5.0); SODIUM 135.8 mmol/L (137-145); TOTAL PROTEIN 6.2 g/dL (6.3-8.2)
[2017-09-01] MEDS: LANSOPRAZOLE 30 MG TAB.RAP.DR PO SCH ×2 (05:25→17:31)
[2017-09-01] MEDS: GUAIFENESIN SYRP 200 MG/10 ML UDC PO PRN (05:26)
[2017-09-01] MEDS: FENTANYL CITRATE INJ/PF 100 MCG/2 ML AMPUL IV PRN (05:26)
[2017-09-01 06:09] LABS: PLATELET COUNT 88 10^3/uL (150-450)
[2017-09-01] MEDS: IPRATROPIUM/ALBUTEROL 0.5-2.5 MG/3 ML AMPUL NEB PRN (07:47)
[2017-09-01] MEDS: ENOXAPARIN SODIUM INJ 40 MG/0.4 ML DISP.SYRIN SUBCUT SCH (09:19)
[2017-09-01] MEDS: DOCUSATE SODIUM 100 MG CAPSULE PO SCH (09:21)
[2017-09-01] MEDS ORDERED: LIDOCAINE 1% INJ-PF (10 MG/ML) 30 ML SDV ONE (10:51)
--- NOTE | 2017-09-01 10:52 | PDOC PROGRESS REPORT ---
Subjective Progress Note for:: 09/01/17 Subjective:: patient c/o persistent abdominal pain and now says his breathing is much worse. He denies any vomiting. Said he is unable to eat much as he is feels pretty full. Reason For Visit: PNEUMONIA, PLEURAL EFFUSION, CIRRHOSIS, ABDOMINAL Physical Exam Vital Signs: Temp Pulse Resp BP Pulse Ox 99.0 F 100 20 139/84 H 97 09/01/17 07:40 09/01/17 08:29 09/01/17 08:29 09/01/17 07:40 09/01/17 08:29 Intake & Output 08/31/17 09/01/17 09/02/17 06:59 06:59 06:59 Intake Total 10 Balance 10 Weight 124.3 kg General appearance: PRESENT: obese, well-developed, well-nourished Head exam: PRESENT: atraumatic Eye exam: PRESENT: conjunctiva pink, EOMI, PERRLA. ABSENT: scleral icterus Neck exam: ABSENT: carotid bruit, JVD, lymphadenopathy, thyromegaly Respiratory exam: PRESENT: crackles, decreased breath sounds, rhonchi, tachypnea - mild. ABSENT: wheezes Cardiovascular exam: PRESENT: RRR. ABSENT: diastolic murmur, rubs, systolic murmur Pulses: PRESENT: normal dorsalis pedis pul GI/Abdominal exam: PRESENT: ascites, distended, tenderness Rectal exam: PRESENT: deferred Extremities exam: PRESENT: full ROM. ABSENT: calf tenderness, clubbing, pedal edema Musculoskeletal exam: PRESENT: ambulatory Neurological exam: PRESENT: alert, awake, oriented to person, oriented to place , oriented to time, oriented to situation, CN II-XII grossly intact. ABSENT: motor sensory deficit Psychiatric exam: PRESENT: appropriate affect, normal mood. ABSENT: homicidal ideation, suicidal ideation Skin exam: PRESENT: normal color. ABSENT: cyanosis Results Laboratory Results: 09/01/17 04:04 09/01/17 04:04 08/31/17 09/01/17 09/01/17 16:40 04:04 04:04 WBC 10.7 H RBC 4.88 Hgb 13.9 Hct 41.5 MCV 85 MCH 28.5 MCHC 33.5 RDW 18.1 H Plt Count 88 L Seg Neutrophils % 67.6 Lymphocytes % 12.4 L Monocytes % 14.8 H Eosinophils % 4.4 Basophils % 0.8 Absolute Neutrophils 7.2 Absolute Lymphocytes 1.3 Absolute Monocytes 1.6 H Absolute Eosinophils 0.5 Absolute Basophils 0.1 Sodium 135.8 L Potassium 3.9 Chloride 103 Carbon Dioxide 23 Anion Gap 10 BUN 11 Creatinine 0.61 Est GFR ( Amer) > 60 Est GFR (Non-Af Amer) > 60 Glucose 151 H Calcium 8.7 Total Bilirubin 1.3 AST 64 H ALT 80 H Alkaline Phosphatase 101 Total Protein 6.2 L Albumin 2.8 L Urine Color ZURDO Urine Appearance CLEAR Urine pH 6.0 Ur Specific [place] 1.020 Urine Protein NEGATIVE Urine Glucose (UA) NEGATIVE Urine Ketones NEGATIVE Urine Blood NEGATIVE Urine Nitrite NEGATIVE Ur Leukocyte Esterase NEGATIVE Urine WBC (Auto) 2 Urine RBC (Auto) 2 Impressions: Chest X-Ray 08/31/17 15:03 IMPRESSION: Large right pleural effusion and extensive pneumonia at the right lung base. Assessment & Plan - Diagnosis (1) Cirrhosis of liver Qualifiers: Hepatic cirrhosis type: unspecified hepatic cirrhosis Ascites presence: with ascites Qualified Code(s): K74.60 - Unspecified cirrhosis of liver Is this a current diagnosis for this admission?: Yes Plan: Discussed with the radiologist and he mentions lack of ascites on recent CT scan. While I agree with the finding clinically patient does seem to have some mild ascites. Patient will be reevaluated by ultrasound and if needed paracentesis will be done. GI consult is pending (2) Pneumonia Qualifiers: Pneumonia type: due to unspecified organism Laterality: right Lung location: lower lobe of lung Qualified Code(s): J18.1 - Lobar pneumonia, unspecified organism Is this a current diagnosis for this admission?: Yes Plan: Patient was recently in hospital for COPD exacerbation and was treated with Levaquin. CT scan at that time showed no evidence of any infiltrates. We will continue current antibiotics and de-escalate as appropriate (3) Pleural effusion, right Is this a current diagnosis for this admission?: Yes Plan: This is likely secondary to the massive ascites. Interventional radiologist has been consulted for thoracentesis. Although there is a possibility of parapneumonic effusion I feel this is less likely. A diagnostic and therapeutic thoracentesis will be done (4) SOB (shortness of breath) Is this a current diagnosis for this admission?: Yes Plan: This is secondary to the pleural effusion and this should improve with the thoracentesis. (5) Thrombocytopenia Is this a current diagnosis for this admission?: Yes Plan: Secondary to liver disease. Will continue to monitor closely - Time Time Spent with patient: 25-34 minutes Medications reviewed and adjusted accordingly: Yes Anticipated discharge: Home Within: within 72 hours - Inpatient Certification Based on my medical assessment, after consideration of the patient's comorbidities, presenting symptoms, or acuity I expect that the services needed warrant INPATIENT care.: Yes I certify that my determination is in accordance with my understanding of Medicare's requirements for reasonable and necessary INPATIENT services [42 CFR 412.3e].: Yes Medical Necessity: Significant Comorbidiites Make Outpatient Treatment Too Risky
[2017-09-01] MEDS: OXYCODONE-ACETAMINOPHEN 5-325 MG TABLET PO PRN ×2 (11:38→21:20)
[2017-09-01] MEDS: VANCOMYCIN HCL 1,500 MG in DEXTROSE 5%-WATER 250 ML IV SCH ×2 (11:39→17:29)
--- NOTE | 2017-09-01 15:27 | RADIOLOGY REPORT (SQ) ---
EXAM DESCRIPTION: CHEST SINGLE VIEW COMPLETED DATE/TIME: 09/01/2017 3:14 pm REASON FOR STUDY: S/P RT THORACENTESIS COMPARISON: Chest films 12/28/2015, 08/31/2017 CT angio chest 08/24/2017 EXAM PARAMETERS: NUMBER OF VIEWS: One view. TECHNIQUE: Single frontal radiographic view of the chest acquired. RADIATION DOSE: NA LIMITATIONS: None. FINDINGS: LUNGS AND PLEURA: Post right thoracentesis with removal of 1200 mL of fluid from the right hemithorax. No pneumothorax. There is still a small to moderate residual pleural effusion with right middle and lower lobe volume loss and consolidation, atelectasis versus pneumonia. Left lung well inflated and grossly clear. No left pleural effusion or pneumothorax. MEDIASTINUM AND HILAR STRUCTURES: No masses. Contour normal. HEART AND VASCULAR STRUCTURES: Heart normal in size. Normal vasculature. BONES: No acute findings. HARDWARE: None in the chest. OTHER: No other significant finding. IMPRESSION: No pneumothorax post right thoracentesis with removal of 1200 mL of fluid. There is a small to moderate resistance right pleural effusion with right middle and lower lobe volum e loss and consolidation, likely atelectasis. Pneumonia could not be excluded TECHNICAL DOCUMENTATION: JOB ID: [id number] [employer]- All Rights Reserved Reading location - IP/workstation name: [email or web address]-[email or web address]
--- NOTE | 2017-09-01 15:56 | RADIOLOGY REPORT (SQ) ---
EXAM DESCRIPTION: U/S ABDOMEN LIMITED W/O DOP COMPLETED DATE/TIME: 09/01/2017 2:58 pm REASON FOR STUDY: Ascites COMPARISON: CT chest 08/24/2017 TECHNIQUE: Ultrasound the abdomen was performed to search for ascites. Patient has known cirrhosis, with abdominal distention LIMITATIONS: None. FINDINGS: All 4 quadrants of the abdomen were examined with ultrasound. No significant ascites. Sp gabi measures 14 cm in greatest length. IMPRESSION: No ascites Set TECHNICAL DOCUMENTATION: JOB ID: [id number]- All Rights Reserved Reading location - IP/workstation name: [facility]RR2
--- NOTE | 2017-09-01 15:58 | RADIOLOGY REPORT (SQ) ---
EXAM DESCRIPTION: U/S THORACENTESIS WITH IMAGING COMPLETED DATE/TIME: 09/01/2017 3:04 pm REASON FOR STUDY: R pleural effusion COMPARISON: Chest film 08/31/2017 LIMITATIONS: None. PROCEDURE: Procedure, risks, benefit, and alternative explained to patient who then gave written con sent. The posterior right chest wall was marked using ultrasound guidance. A time-out was called fo r correct marking verification. Chest prepped and draped using sterile technique. Local anesthesia a chieved using 9 ml of 1% lidocaine injection. A 6fr Safe-T- Centesis set was introduced into the pos terior right pleural space. Fluid was aspirated. The catheter was removed and the entry site was co senia with sterile bandage. No immediate complications noted. Fluid was sent for testing as per the hospitalist physician Images acquired during the procedure were stored on PACS. FINDINGS: ENTRY SITE: Posterior right chest FLUID VOLUME: 1200 mL FLUID ANALYSIS: Clear yellow fluid sent for testing as per hospitalist attending OTHER: No pneumothorax on chest film dictated separately IMPRESSION: SUCCESSFUL THORACENTESIS USING ULTRASOUND GUIDANCE. COMMENT: Patient medication list reviewed: Yes- Quality ID# [id number]:Eligible professional attests to doc umenting in the medical record they obtained, updated, or reviewed the patient's current medications. Quality ID #[id number]: Final reports for procedures using fluoroscopy that document radiation exposure jerome lenore, or exposure time and number of fluorographic images (if radiation exposure indices are not avail able) TECHNICAL DOCUMENTATION: JOB ID: [id number] [employer]- All Rights Reserved Reading location - IP/workstation name: [email or web address]
[2017-09-01 16:12] LABS: FLUID COLOR LIGHT YELLOW; FLUID TYPE PLEURAL
[2017-09-01 16:13] LABS: FLUID APPEARANCE HAZY; FLUID VISCOSITY LIQUID
[2017-09-01 16:23] LABS: FLUID SOURCE LUNG
--- NOTE | 2017-09-01 18:04 | RADIOLOGY REPORT (SQ) ---
EXAM DESCRIPTION: CHEST SINGLE VIEW COMPLETED DATE/TIME: 09/01/2017 5:35 pm REASON FOR STUDY: 2 HOURS S/P RT THORACENTESIS COMPARISON: 09/01/2017 at 1522 hours. EXAM PARAMETERS: NUMBER OF VIEWS: One view. TECHNIQUE: Single frontal radiographic view of the chest acquired. RADIATION DOSE: NA LIMITATIONS: None. FINDINGS: LUNGS AND PLEURA: Residual right pleural effusion and right basilar airspace disease uncha nged. No pneumothorax. Left lung clear. MEDIASTINUM AND HILAR STRUCTURES: No masses. Contour normal. HEART AND VASCULAR STRUCTURES: Heart normal in size. Normal vasculature. BONES: No acute findings. HARDWARE: None in the chest. OTHER: No other significant finding. IMPRESSION: NO PNEUMOTHORAX 2 HOURS AFTER THORACENTESIS. RESIDUAL RIGHT PLEURAL EFFUSION WITH RIGHT BASILAR AIRSPACE DISEASE UNCHANGED. TECHNICAL DOCUMENTATION: JOB ID: [id number] [id number]- All Rights Reserved Reading location - IP/workstation name: [email or web address]
--- NOTE | 2017-09-01 20:52 | RADIOLOGY REPORT (SQ) ---
EXAM DESCRIPTION: CT ABD/PELVIS WITH IV ORAL COMPLETED DATE/TIME: 09/01/2017 8:30 pm REASON FOR STUDY: Abdominal Pain, distension COMPARISON: 08/05/2013. TECHNIQUE: CT scan of the abdomen and pelvis performed using helical scanning technique with dynamic intravenous contrast injection. No oral contrast. Images reviewed with lung, soft tissue, and bone windows. Reconstructed coronal and sagittal MPR images reviewed. Delayed images for evaluation of the urinary system also acquired. All images stored on PACS. All CT scanners at this facility use dose modulation, iterative reconstruction, and/or weight based d osing when appropriate to reduce radiation dose to as low as reasonably achievable (ALARA). [facility]: Dose Right [facility]: CareDose [facility]: Dose Right [facility]: Teradose 4D [facility]: ClubLocal CONTRAST TYPE AND DOSE: contrast/concentration: Isovue 370.00 mg/ml; Total Contrast Delivered: 99.0 ml; Total Saline Delivered: 62.0 ml RENAL FUNCTION: BUN 11 creatinine 0.61. RADIATION DOSE: CT Rad equipment meets quality standard of care and radiation dose reduction techniq ues were employed. CTDIvol: 18.2 - 19.4 mGy. DLP: 2236 mGy-cm.. LIMITATIONS: None. FINDINGS: LOWER CHEST: Large right pleural effusion with atelectasis/ consolidation in the right low er lobe. LIVER: Marked nodularity secondary to cirrhosis. No masses. No dilated ducts. SPLEEN: Normal size. No focal lesions. PANCREAS: No masses. No significant calcifications. No adjacent inflammation or peripancreatic fluid collections. Pancreatic duct not dilated. GALLBLADDER: No identified stones by CT criteria. No inflammatory changes to suggest cholecystitis. ADRENAL GLANDS: No significant masses or asymmetry. RIGHT KIDNEY AND URETER: No solid masses. No significant calcifications. No hydronephrosis or hyd roureter. LEFT KIDNEY AND URETER: No solid masses. No significant calcifications. No hydronephrosis or hydr oureter. AORTA AND VESSELS: No aneurysm. No dissection. Renal arteries, SMA, celiac without stenosis. Multipl e serpiginous vessels in the upper abdomen secondary to varices. RETROPERITONEUM: No retroperitoneal adenopathy, hemorrhage or masses. BOWEL AND PERITONEAL CAVITY: No masses or inflammatory changes. No free fluid or peritoneal masses. APPENDIX: Normal. PELVIS: No mass. No free fluid. Normal bladder. ABDOMINAL WALL: No masses. No hernias. BONES: No significant or acute findings. OTHER: No other significant finding. IMPRESSION: 1. CIRRHOSIS WITH MARKED NODULARITY OF THE LIVER AND NUMEROUS VARICES. NO FOCAL LESIONS. NO ASCITES . 2. LARGE RIGHT PLEURAL EFFUSION WITH RIGHT LOWER LOBE ATELECTASIS/CONSOLIDATION. 3. NO OTHER SIGNIFICANT OR ACUTE FINDING IN THE ABDOMEN OR PELVIS ON CT SCAN WITH IV CONTRAST. TECHNICAL DOCUMENTATION: JOB ID: [id number] Quality ID # [id number]: Final reports with documentation of one or more dose reduction techniques (e.g., Au tomated exposure control, adjustment of the mA and/or kV according to patient size, use of iterative reconstruction technique) 2010 [employer]- All Rights Reserved Reading location - IP/workstation name: [email or web address]
[2017-09-02] MEDS: GUAIFENESIN SYRP 200 MG/10 ML UDC PO PRN ×3 (02:04→20:49)
[2017-09-02] MEDS: IPRATROPIUM/ALBUTEROL 0.5-2.5 MG/3 ML AMPUL NEB PRN ×2 (02:33→11:27)
[2017-09-02] MEDS: OXYCODONE-ACETAMINOPHEN 5-325 MG TABLET PO PRN ×2 (03:04→18:27)
[2017-09-02] MEDS: VANCOMYCIN HCL 1,500 MG in DEXTROSE 5%-WATER 250 ML IV SCH ×3 (03:05→19:07)
[2017-09-02 05:28] LABS: ANION GAP 7 (5-19); BLOOD UREA NITROGEN 11 mg/dL (7-20); CALCIUM 8.9 mg/dL (8.4-10.2); CARBON DIOXIDE 23 mmol/L (22-30); CHLORIDE 106 mmol/L (98-107); GLUCOSE 189 mg/dL (75-110); POTASSIUM 4.1 mmol/L (3.6-5.0)
[2017-09-02] MEDS: LANSOPRAZOLE 30 MG TAB.RAP.DR PO SCH ×2 (05:43→17:09)
[2017-09-02] MEDS: FENTANYL CITRATE INJ/PF 100 MCG/2 ML AMPUL IV PRN (11:01)
[2017-09-02] MEDS: ENOXAPARIN SODIUM INJ 40 MG/0.4 ML DISP.SYRIN SUBCUT SCH (11:03)
[2017-09-02] MEDS: DOCUSATE SODIUM 100 MG CAPSULE PO SCH (11:03)
[2017-09-02 11:35] LABS: VANCOMYCIN,TROUGH 11.9 ug/mL (5.0-20.0)
--- NOTE | 2017-09-02 15:59 | PDOC PROGRESS REPORT ---
Subjective Progress Note for:: 09/02/17 Subjective:: patient feels somewhat better today. Still short of breath Reason For Visit: PNEUMONIA, PLEURAL EFFUSION, CIRRHOSIS, ABDOMINAL Physical Exam Vital Signs: Temp Pulse Resp BP Pulse Ox 98.0 F 94 14 143/77 H 98 09/02/17 11:49 09/02/17 11:49 09/02/17 11:49 09/02/17 11:49 09/02/17 11:49 Intake & Output 09/01/17 09/02/17 09/03/17 06:59 06:59 06:59 Intake Total 10 3498 576 Output Total 3300 525 Balance 10 198 51 Weight 124.3 kg 125.6 kg General appearance: PRESENT: no acute distress, obese, well-developed, well- nourished Head exam: PRESENT: atraumatic Eye exam: PRESENT: conjunctiva pink, EOMI, PERRLA. ABSENT: scleral icterus Ear exam: PRESENT: normal external ear exam Neck exam: ABSENT: carotid bruit, JVD, lymphadenopathy, thyromegaly Respiratory exam: PRESENT: crackles, decreased breath sounds, unlabored. ABSENT : accessory muscle use, rhonchi, tachypnea Cardiovascular exam: PRESENT: RRR. ABSENT: diastolic murmur, rubs, systolic murmur GI/Abdominal exam: PRESENT: normal bowel sounds, soft. ABSENT: distended, guarding, mass, organolmegaly, rebound, tenderness Rectal exam: PRESENT: deferred Extremities exam: PRESENT: +2 edema Musculoskeletal exam: PRESENT: ambulatory Neurological exam: PRESENT: alert, awake, oriented to person, oriented to place , oriented to time, oriented to situation, CN II-XII grossly intact. ABSENT: motor sensory deficit Psychiatric exam: PRESENT: agitated, anxious Skin exam: PRESENT: abrasion Results Laboratory Results: 09/01/17 04:04 09/02/17 10:15 09/01/17 09/02/17 09/02/17 14:49 04:30 10:15 Sodium 136.0 L Potassium 4.1 Chloride 106 Carbon Dioxide 23 Anion Gap 7 BUN 11 Creatinine 0.57 0.59 Est GFR ( Amer) > 60 > 60 Est GFR (Non-Af Amer) > 60 > 60 Glucose 189 H Calcium 8.9 Fluid Type PLEURAL Fluid Source LUNG Fluid Color LIGHT YELLOW Fluid Appearance HAZY Fluid Viscosity LIQUID Fluid WBC 23 Fluid RBC 37 Impressions: Abdomen/Pelvis CT 09/01/17 00:00 IMPRESSION: 1. CIRRHOSIS WITH MARKED NODULARITY OF THE LIVER AND NUMEROUS VARICES. NO FOCAL LESIONS. NO ASCITES. 2. LARGE RIGHT PLEURAL EFFUSION WITH RIGHT LOWER LOBE ATELECTASIS/CONSOLIDATION. 3. NO OTHER SIGNIFICANT OR ACUTE FINDING IN THE ABDOMEN OR PELVIS ON CT SCAN WITH IV CONTRAST. Abdomen Ultrasound 09/01/17 08:00 IMPRESSION: No ascites Set Thoracentesis Ultrasound 09/01/17 09:28 IMPRESSION: SUCCESSFUL THORACENTESIS USING ULTRASOUND GUIDANCE. Chest X-Ray 09/01/17 17:30 IMPRESSION: NO PNEUMOTHORAX 2 HOURS AFTER THORACENTESIS. RESIDUAL RIGHT PLEURAL EFFUSION WITH RIGHT BASILAR AIRSPACE DISEASE UNCHANGED. Assessment & Plan - Diagnosis (1) Cirrhosis of liver Qualifiers: Hepatic cirrhosis type: unspecified hepatic cirrhosis Ascites presence: without ascites Qualified Code(s): K74.60 - Unspecified cirrhosis of liver Is this a current diagnosis for this admission?: Yes Plan: Presently sonogram also shows no ascites. Patient's abdomen is definitely less distended today. I wonder if patient has some degree of right-sided heart failure with the peripheral edema as well as right pleural effusion and possible ascites. His BNP is only 112 however I think it is worth getting an echo to rule out right-sided heart failure GI consult is still pending (2) Pneumonia Qualifiers: Pneumonia type: due to unspecified organism Laterality: right Lung location: lower lobe of lung Qualified Code(s): J18.1 - Lobar pneumonia, unspecified organism Is this a current diagnosis for this admission?: Yes Plan: Patient was recently in hospital for COPD exacerbation and was treated with Levaquin. CT scan at that time showed no evidence of any infiltrates. We will continue current antibiotics a but I will discontinue vancomycin tomorrow after 3 days as I see no evidence of MRSA. (3) Pleural effusion, right Is this a current diagnosis for this admission?: Yes Plan: Status post thoracentesis. Cultures so far as well as Gram stain have been negative and cytology was also negative. Will follow up on the other results. Repeat chest x-ray will be obtained in a.m. (4) SOB (shortness of breath) Is this a current diagnosis for this admission?: Yes Plan: This is secondary to the pleural effusion and should continue to improve (5) Thrombocytopenia Is this a current diagnosis for this admission?: Yes Plan: Secondary to liver disease. Will continue to monitor closely - Time Time Spent with patient: 15-24 minutes Medications reviewed and adjusted accordingly: Yes Anticipated discharge: Home Within: within 72 hours - Inpatient Certification Medical Necessity: Need for IV Antibiotics, Risk of Complication if Not Cared For in Hospital
[2017-09-02] MEDS ORDERED: FUROSEMIDE INJ/PF 40 MG/4 ML SDV IV ONE (17:00)
[2017-09-02] MEDS: CEFTRIAXONE 2 GM/D5W RTU 2 GM/50 ML RTUPB IV SCH (17:10)
[2017-09-02] MEDS: DIPHENHYDRAMINE HCL 25 MG CAPSULE PO SCH (20:47)
[2017-09-03] MEDS: GUAIFENESIN SYRP 200 MG/10 ML UDC PO PRN ×4 (01:11→21:27)
[2017-09-03] MEDS: VANCOMYCIN HCL 1,500 MG in DEXTROSE 5%-WATER 250 ML IV SCH ×2 (03:21→09:10)
[2017-09-03] MEDS: LANSOPRAZOLE 30 MG TAB.RAP.DR PO SCH ×2 (05:19→17:33)
--- NOTE | 2017-09-03 08:23 | RADIOLOGY REPORT (SQ) ---
EXAM DESCRIPTION: CHEST PA/LAT COMPLETED DATE/TIME: 09/03/2017 7:44 am REASON FOR STUDY: Pleural effusion COMPARISON: CT angio chest 08/24/2017 Chest films 08/31/2017, 09/01/2017, Ultrasound-guided right thoracentesis 09/01/2017 EXAM PARAMETERS: NUMBER OF VIEWS: two views TECHNIQUE: Digital Frontal and Lateral radiographic views of the chest acquired. RADIATION DOSE: NA LIMITATIONS: none FINDINGS: LUNGS AND PLEURA: Persistent small to moderate right pleural effusion, unchanged from post thoracentesis films 09/01/2017. There is right basilar airspace disease atelectasis versus pneumonia. Left lung well inflated and grossly clear. No left pleural effusion. No right or left pneumothorax MEDIASTINUM AND HILAR STRUCTURES: No masses or contour abnormalities. HEART AND VASCULAR STRUCTURES: Heart normal size. No evidence for failure. BONES: No acute findings. HARDWARE: None in the chest. OTHER: No other significant finding. IMPRESSION: Persistent small to moderate right pleural effusion, unchanged from post thoracentesis f ilms 09/01/2017 Right middle and lower lobe airspace disease atelectasis versus pneumonia. TECHNICAL DOCUMENTATION: JOB ID: [id number] [employer]- All Rights Reserved Reading location - IP/workstation name: [email or web address]
[2017-09-03] MEDS: IPRATROPIUM/ALBUTEROL 0.5-2.5 MG/3 ML AMPUL NEB PRN (08:50)
[2017-09-03] MEDS: ENOXAPARIN SODIUM INJ 40 MG/0.4 ML DISP.SYRIN SUBCUT SCH (09:10)
[2017-09-03] MEDS: DOCUSATE SODIUM 100 MG CAPSULE PO SCH (09:10)
[2017-09-03] MEDS ORDERED: FUROSEMIDE INJ/PF 40 MG/4 ML SDV IV SCH (10:00)
[2017-09-03] MEDS: OXYCODONE-ACETAMINOPHEN 5-325 MG TABLET PO PRN ×2 (11:36→18:00)
--- NOTE | 2017-09-03 12:48 | XCELERA REPORT ---
[address] [address] Transthoracic Echocardiogram Report Name: FABIO MURILLO Age: 57 yrs Gender: Male : 1960 Patient Status: Inpatient Patient Location: [address] [place] [address] Study Date: 09/03/2017 10:14 AM Height: 74 in Weight: 276 lb BSA: 2.5 m2 Procedure: A complete two-dimensional transthoracic echocardiogram was performed (2D, M-mode, spectral and color flow Doppler). The study was technically difficult with many images being suboptimal in quality. Reason For Study: R pleural effusion, edema Ordering Physician: REINIER ALVES Performed By: Sherri Phelps Interpretation Summary The study was technically difficult with many images being suboptimal in quality. The left ventricular ejection fraction is preserved. Consider additional methods to assess LVEF such as MUGA scan, CTA heart, cardiac MRI, DAVID, etc. if clinically indicated. There is mild concentric left ventricular hypertrophy. The left ventricle is grossly normal size. LV diastolic function could not be adequately assessed. Regional wall motion abnormalities cannot be excluded due to limited visualization. There is a trace amount of mitral regurgitation There is no mitral valve stenosis. No aortic regurgitation is present. There is no aortic valve stenosis No tricuspid regurgitation. There is no tricuspid stenosis. The aortic root is not well visualized. The inferior vena cava was not visualized There is no pericardial effusion. MMode/2D Measurements & Calculations RVDd: 3.6 cm LVIDd: 4.5 cm FS: 35.5 % Ao root diam: 3.5 cm IVSd: 1.2 cm LVIDs: 2.9 cm EDV(Teich): 93.2 ml LVPWd: 1.1 cm ESV(Teich): 32.5 ml Ao root area: 9.7 cm2 EF(Teich): 65.1 % LA dimension: 3.1 cm Doppler Measurements & Calculations MV E max gilles: MV P1/2t max gilles: Ao V2 max: LV V1 max P.1 cm/sec 69.6 cm/sec 92.1 cm/sec 3.0 mmHg MV A max gilles: MV P1/2t: 67.4 msec Ao max PG: LV V1 max: 73.5 cm/sec 3.4 mmHg 86.9 cm/sec MV E/A: 0.91 MVA(P1/2t): 3.3 cm2 MV dec slope: 302.3 cm/sec2 PA V2 max: 139.2 cm/sec PA max P.7 mmHg Left Ventricle The left ventricle is grossly normal size. There is mild concentric left ventricular hypertrophy. The left ventricular ejection fraction is preserved. Consider additional methods to assess LVEF such as MUGA scan, CTA heart, cardiac MRI, DAVID, etc. if clinically indicated. LV diastolic function could not be adequately assessed. Regional wall motion abnormalities cannot be excluded due to limited visualization. Right Ventricle The right ventricle is grossly normal size. There is normal right ventricular wall thickness. The right ventricular systolic function is normal. Atria The right atrium is normal. The left atrial size is normal. Interarterial septum not well visualized and not well dopplered. Cannot comment on ASD/PFO presence. Mitral Valve The mitral valve leaflets are sclerotic, but show no functional abnormalities. There is no mitral valve stenosis. There is a trace amount of mitral regurgitation. Aortic Valve The aortic valve is not well visualized secondary to technical limitations. There is no aortic valve stenosis. No aortic regurgitation is present. Tricuspid Valve The tricuspid valve is not well visualized secondary to technical limitations. There is no tricuspid stenosis. No tricuspid regurgitation. Pulmonic Valve The pulmonic valve is not well visualized. Great Vessels The aortic root is not well visualized. The inferior vena cava was not visualized. Effusions There is no pericardial effusion. : REINIER ALVES > Jinny Montoya
--- NOTE | 2017-09-03 13:21 | PDOC PROGRESS REPORT ---
Subjective Progress Note for:: 09/03/17 Subjective:: patient feels somewhat better today. Still short of breath denies any chest pain. He states he has been urinating much more since started on Lasix Reason For Visit: PNEUMONIA, PLEURAL EFFUSION, CIRRHOSIS, ABDOMINAL Physical Exam Vital Signs: Temp Pulse Resp BP Pulse Ox 98.5 F 75 16 125/82 96 09/03/17 07:27 09/03/17 08:50 09/03/17 08:50 09/03/17 07:27 09/03/17 08:50 Intake & Output 09/02/17 09/03/17 09/04/17 06:59 06:59 06:59 Intake Total 3498 1878 Output Total 3300 3175 Balance 198 -1297 Weight 125.6 kg 125.8 kg General appearance: PRESENT: no acute distress Head exam: PRESENT: atraumatic Eye exam: PRESENT: conjunctiva pink, EOMI, PERRLA. ABSENT: scleral icterus Ear exam: PRESENT: normal external ear exam Neck exam: ABSENT: carotid bruit, JVD, lymphadenopathy, thyromegaly Respiratory exam: PRESENT: decreased breath sounds, rhonchi, unlabored. ABSENT : retraction, tachypnea, wheezes Cardiovascular exam: PRESENT: RRR. ABSENT: diastolic murmur, rubs, systolic murmur GI/Abdominal exam: PRESENT: distended, firm, normal bowel sounds, tenderness - less tender. ABSENT: rebound Rectal exam: PRESENT: deferred Extremities exam: PRESENT: full ROM, +2 edema. ABSENT: calf tenderness, clubbing, pedal edema Musculoskeletal exam: PRESENT: ambulatory Neurological exam: PRESENT: alert, awake, oriented to person, oriented to place , oriented to time, oriented to situation, CN II-XII grossly intact. ABSENT: motor sensory deficit Psychiatric exam: PRESENT: anxious Results Laboratory Results: 09/01/17 04:04 09/02/17 10:15 09/01/17 09/01/17 09/01/17 14:49 14:49 14:49 Fluid Glucose 162 Fluid Total Protein 0.6 Fluid Albumin < 0.2 Impressions: Abdomen/Pelvis CT 09/01/17 00:00 IMPRESSION: 1. CIRRHOSIS WITH MARKED NODULARITY OF THE LIVER AND NUMEROUS VARICES. NO FOCAL LESIONS. NO ASCITES. 2. LARGE RIGHT PLEURAL EFFUSION WITH RIGHT LOWER LOBE ATELECTASIS/CONSOLIDATION. 3. NO OTHER SIGNIFICANT OR ACUTE FINDING IN THE ABDOMEN OR PELVIS ON CT SCAN WITH IV CONTRAST. Abdomen Ultrasound 09/01/17 08:00 IMPRESSION: No ascites Set Thoracentesis Ultrasound 09/01/17 09:28 IMPRESSION: SUCCESSFUL THORACENTESIS USING ULTRASOUND GUIDANCE. Chest X-Ray 09/03/17 00:00 IMPRESSION: Persistent small to moderate right pleural effusion, unchanged from post thoracentesis films 09/01/2017 Right middle and lower lobe airspace disease atelectasis versus pneumonia. Assessment & Plan - Diagnosis (1) Cirrhosis of liver Qualifiers: Hepatic cirrhosis type: unspecified hepatic cirrhosis Ascites presence: without ascites Qualified Code(s): K74.60 - Unspecified cirrhosis of liver Is this a current diagnosis for this admission?: Yes Plan: Sonogram also shows no ascites. Patient's abdomen less distended. Echocardiogram is grossly negative with an intact ejection fraction and no mention of right ventricular hypertrophy of pulmonary hypertension (2) Pneumonia Qualifiers: Pneumonia type: due to unspecified organism Laterality: right Lung location: lower lobe of lung Qualified Code(s): J18.1 - Lobar pneumonia, unspecified organism Is this a current diagnosis for this admission?: Yes Plan: Patient was recently in hospital for COPD exacerbation and was treated with Levaquin. CT scan at that time showed no evidence of any infiltrates. continue current antibiotics a but I will discontinue vancomycin today. (3) Pleural effusion, right Is this a current diagnosis for this admission?: Yes Plan: Status post thoracentesis. Cultures so far as well as Gram stain have been negative and cytology was also negative. He did have some WBCs on Gram stain blood cultures have been negative. So far all the other test is negative and maybe this is possibly just a parapneumonic effusion considering that he did have pneumonia recently with incomplete treatment as patient signed out AMA. (4) SOB (shortness of breath) Is this a current diagnosis for this admission?: Yes Plan: This is secondary to the pleural effusion and should continue to improve (5) Thrombocytopenia Is this a current diagnosis for this admission?: Yes (6) Obesity (BMI 35.0-39.9 without comorbidity) Is this a current diagnosis for this admission?: Yes Plan: Weight loss encouraged - Time Time Spent with patient: 15-24 minutes Medications reviewed and adjusted accordingly: Yes Anticipated discharge: Home Within: within 72 hours - Inpatient Certification Medical Necessity: Need for IV Antibiotics, Risk of Complication if Not Cared For in Hospital
[2017-09-03] MEDS: CEFTRIAXONE 2 GM/D5W RTU 2 GM/50 ML RTUPB IV SCH (17:33)
[2017-09-03] MEDS: DIPHENHYDRAMINE HCL 25 MG CAPSULE PO SCH (21:27)
[2017-09-04] MEDS: OXYCODONE-ACETAMINOPHEN 5-325 MG TABLET PO PRN (02:47)
[2017-09-04] MEDS: LANSOPRAZOLE 30 MG TAB.RAP.DR PO SCH (05:26)
[2017-09-04 06:01] LABS: HEMATOCRIT 40.8 % (37.9-51.0); HEMOGLOBIN 13.6 g/dL (13.5-17.0); MEAN CORPUSCULAR HEMOGLOBIN 28.4 pg (27.0-33.4); MEAN CORPUSCULAR HGB CONC 33.4 g/dL (32.0-36.0); MEAN CORPUSCULAR VOLUME 85 fl (80-97); PLATELET COUNT 124 10^3/uL (150-450); RED CELL DISTRIBUTION WIDTH 18.2 % (11.5-14.0); WHITE BLOOD COUNT 7.8 10^3/uL (4.0-10.5)
[2017-09-04 06:18] LABS: ALANINE AMINOTRANSFERASE 91 U/L (21-72); ALBUMIN 2.9 g/dL (3.5-5.0); ALKALINE PHOSPHATASE 108 U/L (38-126); ANION GAP 6 (5-19); ASPARTATE AMINO TRANSFERASE 81 U/L (17-59); BILIRUBIN,DIRECT 0.7 mg/dL (0.0-0.4); BLOOD UREA NITROGEN 10 mg/dL (7-20); CALCIUM 8.9 mg/dL (8.4-10.2); CARBON DIOXIDE 23 mmol/L (22-30); CHLORIDE 108 mmol/L (98-107); GLUCOSE 141 mg/dL (75-110); POTASSIUM 3.9 mmol/L (3.6-5.0); SODIUM 136.8 mmol/L (137-145); TOTAL PROTEIN 6.4 g/dL (6.3-8.2)
[2017-09-04 07:58] VITALS: BP 137/70
[2017-09-04] MEDS: GUAIFENESIN SYRP 200 MG/10 ML UDC PO PRN (08:00)
--- NOTE | 2017-09-04 14:47 | PDOC DISCHARGE SUMMARY ---
General - Admit/Disc Date/PCP Admission Date/Primary Care Provider: 08/31/17 16:19 EMILY AYALA NP Discharge Date: 09/04/17 - Discharge Diagnosis (1) Cirrhosis of liver Is this a current diagnosis for this admission?: Yes (2) Pneumonia Is this a current diagnosis for this admission?: Yes (3) Pleural effusion, right Is this a current diagnosis for this admission?: Yes (4) SOB (shortness of breath) Is this a current diagnosis for this admission?: Yes (5) Thrombocytopenia Is this a current diagnosis for this admission?: Yes (6) Obesity (BMI 35.0-39.9 without comorbidity) Is this a current diagnosis for this admission?: Yes - Additional Information Resuscitation Status: Full Code Home Medications: Cyclobenzaprine HCl [Flexeril 10 mg Tablet] 10 mg PO TIDP PRN 09/01/17 Diclofenac Sodium [Voltaren] 1 applic TP DAILYP PRN 09/01/17 Gabapentin [Neurontin 300 mg Capsule] 300 mg PO DAILY 09/01/17 Gabapentin [Neurontin 300 mg Capsule] 600 mg PO QHS 09/01/17 History of Present Illness History of Present Illness: FABIO MURILLO is a 57 year old male Patient was admitted with difficulty breathing and shortness of breath which has been progressive over the last week. He was actually in hospital about a week ago where he was treated for COPD exacerbation and pneumonia. It appears patient signed out AGAINST MEDICAL ADVICE after 2 days of treatment. He returns today with increased abdominal swelling as well as swelling in his legs and progressive shortness of breath. Patient appears to have a massive ascites which he says was unchanged from last week when he was here. Interestingly enough CT scan of the abdomen and chest done just 1 week ago showed no evidence of any infiltrates or pleural effusion and no mention of ascites although he did mention extremely nodular liver with splenic calcifications consistent with granulomatous disease. There was splenomegaly with numerous collateral vessels of the gastrohepatic ligament, findings consistent with cirrhosis with portal hypertension. Patient does complain of abdominal pain but no fever nausea vomiting. He denies any prior history of paracentesis though appears he has had a thoracentesis before. Hospital Course Hospital Course: Patient had large volume thoracentesis done with removal of about 1.2 L of fluid with improvement in his respiration. There however was no ascites and no paracentesis was done. Both CT scan and abdominal sonogram showed no evidence of ascites. Patient was started on intravenous antibiotics and was also started on parenteral Lasix and he has been gradually improving. A two- dimensional echocardiogram was done to rule out right-sided failure and this was also ruled out. Decided to sign out AGAINST MEDICAL ADVICE today before completing these medical treatment despite being advised against this. He is adamant about signing out and was given the papers to sign after which he left. Physical Exam Vital Signs: Temp Pulse Resp BP Pulse Ox 97.9 F 91 18 137/70 H 99 09/04/17 07:34 09/04/17 07:34 09/04/17 07:34 09/04/17 07:34 09/04/17 07:34 Intake & Output 09/03/17 09/04/17 09/05/17 06:59 06:59 06:59 Intake Total 1878 2011 Output Total 3178 3035 Balance -1297 -1023 Weight 125.8 kg 126.2 kg General appearance: PRESENT: no acute distress Head exam: PRESENT: atraumatic Respiratory exam: PRESENT: decreased breath sounds, rhonchi, unlabored. ABSENT : accessory muscle use, rales, tachypnea, wheezes Cardiovascular exam: PRESENT: RRR. ABSENT: diastolic murmur, rubs, systolic murmur GI/Abdominal exam: PRESENT: distended, soft Rectal exam: PRESENT: deferred Neurological exam: PRESENT: alert, awake, oriented to person, oriented to place , oriented to time, oriented to situation, CN II-XII grossly intact. ABSENT: motor sensory deficit Results Laboratory Results: 09/04/17 05:41 09/04/17 05:41 09/04/17 09/04/17 05:41 05:41 WBC 7.8 RBC 4.80 Hgb 13.6 Hct 40.8 MCV 85 MCH 28.4 MCHC 33.4 RDW 18.2 H Plt Count 124 L Sodium 136.8 L Potassium 3.9 Chloride 108 H Carbon Dioxide 23 Anion Gap 6 BUN 10 Creatinine 0.57 Est GFR ( Amer) > 60 Est GFR (Non-Af Amer) > 60 Glucose 141 H Calcium 8.9 Total Bilirubin 1.0 AST 81 H ALT 91 H Alkaline Phosphatase 108 Total Protein 6.4 Albumin 2.9 L 09/01/17 20:40 Sputum AFB Smear Concentration - Final 09/01/17 20:40 Sputum Acid Fast Bacilli Smear - Final 09/01/17 14:49 Pleural Fluid - Right Pleural Effusion Gram Stain - Final 09/01/17 14:49 Pleural Fluid - Right Pleural Effusion Body Fluid Culture - Final NO AEROBIC OR ANAEROBIC ORGANISMS RECOVERED Impressions: Abdomen/Pelvis CT 09/01/17 00:00 IMPRESSION: 1. CIRRHOSIS WITH MARKED NODULARITY OF THE LIVER AND NUMEROUS VARICES. NO FOCAL LESIONS. NO ASCITES. 2. LARGE RIGHT PLEURAL EFFUSION WITH RIGHT LOWER LOBE ATELECTASIS/CONSOLIDATION. 3. NO OTHER SIGNIFICANT OR ACUTE FINDING IN THE ABDOMEN OR PELVIS ON CT SCAN WITH IV CONTRAST. Abdomen Ultrasound 09/01/17 08:00 IMPRESSION: No ascites Set Thoracentesis Ultrasound 09/01/17 09:28 IMPRESSION: SUCCESSFUL THORACENTESIS USING ULTRASOUND GUIDANCE. Chest X-Ray 09/03/17 00:00 IMPRESSION: Persistent small to moderate right pleural effusion, unchanged from post thoracentesis films 09/01/2017 Right middle and lower lobe airspace disease atelectasis versus pneumonia. Qualifiers - * PATEINT BEING DISCHARGED WITH ANY OF THE FOLLOWING DIAGNOSIS?: No Plan Discharge Plan: Patient signed out AMA before treatment was completed Time Spent: Less than 30 Minutes
== END 2017-09-04 10:44 | disposition left against medical advice (07) | DRG 432 ==
LOC: ER 15:01 → EH 16:19 → 3N 09-01 02:43 → 3S 09-02 00:17
PROVIDERS: ADMIT Emergency Medicine; ATTEND Emergency Medicine
PROC: 0W993ZX Drainage of Right Pleural Cavity, Percutaneous Approach, Diagnostic (ICD-10-PCS; principal; 2017-09-01)
DX: K74.60 Unspecified cirrhosis of liver (principal); J18.1 Lobar pneumonia, unspecified organism; J90 Pleural effusion, not elsewhere classified; D69.6 Thrombocytopenia, unspecified; E66.9 Obesity, unspecified; Z68.35 Body mass index [BMI] 35.0-35.9, adult
CPT/HCPCS: 32555; 36415; 71045; 71046; 74177; 76705; 80048; 80053; 80202; 81001; 82042; 82105; 82550; 82553; 82565; 82945; 83880; 84157; 84484; 85025; 85027; 85610; 87015; 87070; 87075; 87116; 87205; 87206; 89050; 93005; 93010; 93306; 94640; 94799; 99285; J0696; J1940; J2405; J3010; J3370; J3490; J7060; J7620

== ENCOUNTER 2018-04-09 14:49 | Emergency (ER) | payer MEDICARE, MEDICAID ==
--- NOTE | 2018-04-09 15:08 | ER Document Report ---
ED Medical Screen (RME) - General Chief Complaint: Anxiety Stated Complaint: IVC Time Seen by Provider: 04/09/18 15:02 Notes: 57-year-old male patient with chronic liver disease has been hallucinating, wants voluntary commitment. I have greeted and performed a rapid initial assessment of this patient. A comprehensive ED assessment and evaluation of the patient, analysis of test results and completion of the medical decision making process will be conducted by additional ED providers. TRAVEL OUTSIDE OF THE [place] IN LAST 30 DAYS: No - Related Data Allergies/Adverse Reactions: poison jarrett extract Allergy (Verified 04/09/18 14:51) poison sumac extract Allergy (Verified 04/09/18 14:51) Past Medical History - Past Medical History Cardiac Medical History: Denies: Hx Atrial Fibrillation, Hx Congestive Heart Failure, Hx Coronary Artery Disease, Hx Heart Attack, Hx Hypercholesterolemia, Hx Hypertension, Hx Peripheral Vascular Disease, Hx Pulmonary Embolism, Hx Heart Murmur Pulmonary Medical History: Reports: Hx Pneumonia - , 07/2014? Denies: Hx Asthma, Hx Bronchitis, Hx COPD, Hx Respiratory Failure, Hx Sleep Apnea, Hx Tuberculosis Neurological Medical History: Denies: Hx Cerebrovascular Accident, Hx Seizures Endocrine Medical History: Denies: Hx Graves' Disease, Hx Hyperthyroidism, Hx Hypothyroidism Renal/ Medical History: Denies: Hx Benign Prostatic Hyperplasia, Hx End Stage Renal Disease, Hx Kidney Stones, Hx Peritoneal Dialysis Malignancy Medical History: Denies Hx Leukemia, Denies Hx Lung Cancer GI Medical History: Reports: Hx Cirrhosis, Hx Ulcer - as a child. Denies: Hx Crohn's Disease, Hx Gastroesophageal Reflux Disease, Hx Hiatal Hernia, Hx Irritable Bowel, Hx Liver Failure - Cirrhosis 2014 Hep C negative?, Hx Pancreatitis Musculoskeltal Medical History: Reports Hx Arthritis, Denies Hx Fibromyalgia, Denies Hx Multiple Sclerosis, Denies Hx Muscular Dystrophy Psychiatric Medical History: Reports: Hx Depression Denies: Hx Bipolar Disorder, Hx Dementia, Hx Post Traumatic Stress Disorder, Hx Schizophrenia Traumatic Medical History: Reports: Hx Fractures - bilateral hands, right wrist , broken ribs, left tibia/fibula Infectious Medical History: Denies: Hx HIV Past Surgical History: Reports: Hx Orthopedic Surgery - LLE. Denies: Hx Appendectomy, Hx Bowel Surgery, Hx Cholecystectomy, Hx Colostomy, Hx Coronary Artery Bypass Graft, Hx Gastric Bypass Surgery, Hx Herniorrhaphy, Hx Pacemaker, Hx Tonsillectomy - Immunizations Hx Diphtheria, Pertussis, Tetanus Vaccination: Yes History of Influenza Vaccine for 04/2017 - 09/2017 Season: Refused Physical Exam - Vital signs Vitals: Temp Pulse Resp BP Pulse Ox 97.6 F 82 14 114/76 96 04/09/18 14:56 04/09/18 14:56 04/09/18 14:56 04/09/18 14:56 04/09/18 14:56 Course - Vital Signs Vital signs: Temp Pulse Resp BP Pulse Ox 97.6 F 82 14 114/76 96 04/09/18 14:56 04/09/18 14:56 04/09/18 14:56 04/09/18 14:56 04/09/18 14:56 Doctor's Discharge - Discharge Instructions: Anxiety ([facility]) Referrals: EMILY AYALA SEPARATING MACHINE OPERATOR [Primary Care Provider] - Follow up as needed
[2018-04-09 15:51] LABS: ABSOLUTE BASOPHILS # (AUTO) 0.1 10^3/uL (0.0-0.2); ABSOLUTE EOSINOPHILS # (AUTO) 0.8 10^3/uL (0.0-0.6); ABSOLUTE MONOCYTES (AUTO) 1.3 10^3/uL (0.1-1.4); ABSOLUTE NEUT (AUTO) 5.7 10^3/uL (1.7-8.2); BASOPHILS % (AUTO) 1.3 % (0-2); EOSINOPHILS % (AUTO) 7.8 % (0-6); HEMATOCRIT 38.6 % (37.9-51.0); LYMPHOCYTES % (AUTO) 20.4 % (13-45); MEAN CORPUSCULAR HEMOGLOBIN 33.1 pg (27.0-33.4); MEAN CORPUSCULAR HGB CONC 36.3 g/dL (32.0-36.0); MEAN CORPUSCULAR VOLUME 91 fl (80-97); MONOCYTES % (AUTO) 13.2 % (3-13); PLATELET COUNT 161 10^3/uL (150-450); RED BLOOD COUNT 4.23 10^6/uL (4.35-5.55); RED CELL DISTRIBUTION WIDTH 17.3 % (11.5-14.0); SEGMENTED NEUTROPHILS % (AUTO) 57.3 % (42-78); TOTAL CELLS COUNTED % (AUTO) 100 %
--- NOTE | 2018-04-09 15:58 | ER Document Report ---
ED Psych Disorder / Suicide - General Chief Complaint: Anxiety Stated Complaint: IVC Time Seen by Provider: 04/09/18 15:02 Notes: Patient is here for uncertain reasons. He relates the he called police to his place because people were stealing things from him. EMS transported the patient here and they comment that people said that the patient was hallucinating. He is telling me that he has a history of hepatitis C and is on medications for that condition. He has ascites, but that is chronic, although it has been drained in the past. The ascites is not very tense or painful or causing suppression of his breathing. Patient provides a limited, confused reason for being here. Paperwork says that he is here for voluntary commitment. Patient says that he has anxiety and depression, but does not feel suicidal. TRAVEL OUTSIDE OF THE [place] IN LAST 30 DAYS: No - Related Data Allergies/Adverse Reactions: poison jarrett extract Allergy (Verified 04/09/18 14:51) poison sumac extract Allergy (Verified 04/09/18 14:51) Past Medical History - Social History Smoking Status: Current Every Day Smoker Frequency of alcohol use: None Drug Abuse: None Family History: None, Reviewed & Not Pertinent Patient has suicidal ideation: No Patient has homicidal ideation: No - Past Medical History Cardiac Medical History: Denies: Hx Atrial Fibrillation, Hx Congestive Heart Failure, Hx Coronary Artery Disease, Hx Heart Attack, Hx Hypercholesterolemia, Hx Hypertension, Hx Peripheral Vascular Disease, Hx Pulmonary Embolism, Hx Heart Murmur Pulmonary Medical History: Reports: Hx Pneumonia - , 07/2014? Denies: Hx Asthma, Hx Bronchitis, Hx COPD, Hx Respiratory Failure, Hx Sleep Apnea, Hx Tuberculosis Neurological Medical History: Denies: Hx Cerebrovascular Accident, Hx Seizures Endocrine Medical History: Denies: Hx Graves' Disease, Hx Hyperthyroidism, Hx Hypothyroidism Renal/ Medical History: Denies: Hx Benign Prostatic Hyperplasia, Hx End Stage Renal Disease, Hx Kidney Stones, Hx Peritoneal Dialysis Malignancy Medical History: Denies Hx Leukemia, Denies Hx Lung Cancer GI Medical History: Reports: Hx Cirrhosis, Hx Ulcer - as a child. Denies: Hx Crohn's Disease, Hx Gastroesophageal Reflux Disease, Hx Hiatal Hernia, Hx Irritable Bowel, Hx Liver Failure - Cirrhosis 2014 Hep C negative?, Hx Pancreatitis Musculoskeletal Medical History: Reports Hx Arthritis, Denies Hx Fibromyalgia, Denies Hx Multiple Sclerosis, Denies Hx Muscular Dystrophy Psychiatric Medical History: Reports: Hx Depression Denies: Hx Bipolar Disorder, Hx Dementia, Hx Post Traumatic Stress Disorder, Hx Schizophrenia Traumatic Medical History: Reports: Hx Fractures - bilateral hands, right wrist , broken ribs, left tibia/fibula Infectious Medical History: Denies: Hx HIV Past Surgical History: Reports: Hx Orthopedic Surgery - LLE. Denies: Hx Appendectomy, Hx Bowel Surgery, Hx Cholecystectomy, Hx Colostomy, Hx Coronary Artery Bypass Graft, Hx Gastric Bypass Surgery, Hx Herniorrhaphy, Hx Pacemaker, Hx Tonsillectomy - Immunizations Hx Diphtheria, Pertussis, Tetanus Vaccination: Yes Review of Systems - Review of Systems -: Yes ROS unobtainable due to patient's medical condition - Confused and difficult to understand patient's speech. Physical Exam - Vital signs Vitals: Temp Pulse Resp BP Pulse Ox 97.6 F 82 14 114/76 96 04/09/18 14:56 04/09/18 14:56 04/09/18 14:56 04/09/18 14:56 04/09/18 14:56 Interpretation: Normal Notes: PHYSICAL EXAMINATION: GENERAL: Well-appearing, in no acute distress. HEAD: Atraumatic, normocephalic. EYES: Pupils equal round and reactive to light, extraocular movements intact. ENT: oropharynx clear without exudates. Moist mucous membranes. NECK: Normal range of motion, supple. LUNGS: Breath sounds clear and equal bilaterally. HEART: Regular rate and rhythm without murmurs. ABDOMEN: Moderate amount of ascitic fluid, but not tense or taut or large enough to impinge on respirations. Does not need draining acutely at this time. Soft, nontender. No guarding or rebound. No masses. BACK: No tenderness throughout entire back. EXTREMITIES: Normal range of motion without pain. NEUROLOGICAL: Normal speech, normal gait. Normal sensory, motor, and reflex exams. Awake, alert, and oriented x3. Cranial nerves normal. PSYCH: Normal mood, normal affect. SKIN: Warm, dry, no rashes. Course - Re-evaluation Re-evalutation: 04/09/18 18:59 Patient was seen by mental health who felt he was hallucinating and confused and probably psychotic. He is being held over for IVC. Further evaluation in the morning. 04/09/18 19:05 patient's serum ammonia level is 86. Unfortunately, patient does not have any previous ammonia levels in his records of the recent past. I do not know if he has this level as a routine value for him or if it is acutely elevated. I am going to order a repeat of the ammonia level in the morning and ask that the physician assigned to reviewing psychiatric patients review this patient's mental status and LFTs and ammonia level in the morning. See if the patient's ammonia level stays constant or if it is rising will even if it is declining. - Vital Signs Vital signs: Temp Pulse Resp BP Pulse Ox 97.6 F 82 14 114/76 96 04/09/18 14:56 04/09/18 14:56 04/09/18 14:56 04/09/18 14:56 04/09/18 14:56 - Laboratory Result Diagrams: 04/09/18 15:38 04/09/18 15:38 Laboratory results interpreted by me: 04/09/18 04/09/18 04/09/18 15:38 15:38 15:38 RBC 4.23 L MCHC 36.3 H RDW 17.3 H Monocytes % 13.2 H Eosinophils % 7.8 H Absolute Eosinophils 0.8 H PT Chloride 116 H Carbon Dioxide 19 L Total Bilirubin 3.4 H Direct Bilirubin 1.5 H Ammonia 86.0 H Albumin 3.1 L Urine Protein Urine Bilirubin Urine Urobilinogen 04/09/18 04/09/18 15:38 16:00 RBC MCHC RDW Monocytes % Eosinophils % Absolute Eosinophils PT 16.1 H Chloride Carbon Dioxide Total Bilirubin Direct Bilirubin Ammonia Albumin Urine Protein 30 H Urine Bilirubin SMALL H Urine Urobilinogen 4.0 H Discharge - Discharge Instructions: Anxiety ([facility]) Referrals: EMILY AYALA NP [Primary Care Provider] - Follow up as needed
[2018-04-09 16:05] LABS: INTERNATIONAL RATION (INR) 1.23; PROTHROMBIN TIME 16.1 SEC (11.4-15.4)
[2018-04-09 16:14] LABS: ALANINE AMINOTRANSFERASE 41 U/L (21-72); ALBUMIN 3.1 g/dL (3.5-5.0); ALKALINE PHOSPHATASE 94 U/L (38-126); ANION GAP 8 (5-19); ASPARTATE AMINO TRANSFERASE 56 U/L (17-59); BILIRUBIN,DIRECT 1.5 mg/dL (0.0-0.4); BILIRUBIN,TOTAL 3.4 mg/dL (0.2-1.3); BLOOD UREA NITROGEN 12 mg/dL (7-20); CALCIUM 9.5 mg/dL (8.4-10.2); CARBON DIOXIDE 19 mmol/L (22-30); CHLORIDE 116 mmol/L (98-107); CREATINE KINASE 66 U/L (55-170); GLUCOSE 99 mg/dL (75-110); POTASSIUM 3.9 mmol/L (3.6-5.0); SODIUM 142.9 mmol/L (137-145); TOTAL PROTEIN 7.1 g/dL (6.3-8.2)
--- NOTE | 2018-04-09 16:33 | PSYCHOLOGICAL NOTE ---
Psych Note - Psych Note Psych Note: Reason For Consult:substance abuse Presents today to the ER for IVC. He notes that he has been taking pills that he feels are making him not feel right but is not sure what the medication is. He states that he was taking 9 of these pills and has weaned himself off. He states that he is non-violent. He states that he is just very worried about pill and bills and that takes up most of his time. Patient reports he arrived to [facility] ED via EMS because of please officer said he needed to come. He reports the police officer crime prevention thought it would be good for him to have a mental exam. Patient denies having a mental health diagnosis and only having a primary care physician. When asked about substance abuse he stated 4 years ago he used to drink however he has been sober since. When asked about medications patient became very confused stating that he does not know all of his medications however takes high blood pressure medication. when asked about other medications he again started talking about how he takes his blood pressure because it goes back and forth between high and regular. Patient was able to be redirected to conversation again and reported that he takes hepatitis C medications and for confirms he takes Topamax and muscle relaxers. Patient then started discussed how he has to take her medications and takes a "a lot, a lot;" however, has been slowly weaning off of them. Patient was unable to disclose what medication this is. Patient reports he lives with his fiance Kristyn and provides consent for behavioral health to contact her and provide information. Patient denies having any issues with hallucinations however then starts talking about being aggravated. When patient was asked to explain he stated "she cannot make up her mind." Patient reports suicidal ideation when asked if he has a plan he states "get enough money saved up to move to [place]." When asked how that is a plan to kill himself he states that clinician must have misunderstood that he does not have a plan. Patient denies homicidal ideation. Patient was asked if he had requested placement in psychiatric treatment at which he denies stating "no I want to go home it is boring here." Behavioral Health Team contacted Kristyn, patient's significant other. She reports the patient has not drink since February. She reports the patient did mention that he be better off however does not feel he has intent. She is uncertain if the patient takes his medications as prescribed. She reports that he has been hallucinating for the last 2 days. She denies that he has a history of mental health. Patient is alert and orientated to person, place, time. Patient discloses passive suicidal ideation denies homicidal ideation. Thought processes were slightly tangential; however, was able to be redirected back to conversation. Conversational speech was slurred and at times difficult to understand. Patient would not make eye contact. Intellectual abilities appear to be within the average range. Attention and concentration are poor. Insight, judgment, impulse control is fair. No medication recommendations at this time 291.9 (F10.99) Unspecified Alcohol-Related Disorder per history R/O medication abuse/misuse Impression\\plan: Patient is recommended for IVC petition for overnight mental health observation. At this time it appears the patient may be under the influence. It is noted the patient discloses taking a lot of 1 of his medications and has started to wean off of them however is unable to articulate which one. Patient will be reevaluated. Dr. Dhaliwal was consulted and the care management this patient; attending physicians in agreement with recommendations and disposition.
[2018-04-09 17:18] LABS: APPEARANCE,URINE SLIGHTLY-CLOUDY; BILIRUBIN,URINE SMALL (NEGATIVE); CALCIUM OXALATE CRYSTALS,URINE FEW /HPF; GLUCOSE, URINE NEGATIVE (NEGATIVE); KETONES,URINE NEGATIVE (NEGATIVE); LEUKOCYTE ESTERASE,URINE NEGATIVE (NEGATIVE); NITRITE,URINE NEGATIVE (NEGATIVE); PROTEIN,URINE 30 mg/dL (NEGATIVE); URINE SPECIFIC GRAVITY 1.024
[2018-04-09 17:21] LABS: COLOR,URINE YELLOW
[2018-04-09 18:48] LABS: URINE AMPHETAMINES SCREEN NEGATIVE; URINE BARBITURATES SCREEN UNCONFIRMED POSITIVE; URINE BENZODIAZEPINES SCREEN NEGATIVE; URINE COCAINE SCREEN NEGATIVE; URINE MARIJUANA (THC) SCREEN NEGATIVE; URINE METHADONE SCREEN NEGATIVE; URINE PHENCYCLIDINE SCREEN NEGATIVE
--- NOTE | 2018-04-09 20:17 | EKG REPORT ---
SEVERITY:- NORMAL ECG - SINUS RHYTHM : Confirmed by: Jinny Montoya 09-Apr-2018 20:16:51
[2018-04-10 08:10] LABS: ABSOLUTE BASOPHILS # (AUTO) 0.1 10^3/uL (0.0-0.2); ABSOLUTE EOSINOPHILS # (AUTO) 0.7 10^3/uL (0.0-0.6); ABSOLUTE LYMPHOCYTES (AUTO) 2.1 10^3/uL (0.5-4.7); ABSOLUTE MONOCYTES (AUTO) 1.1 10^3/uL (0.1-1.4); ABSOLUTE NEUT (AUTO) 4.5 10^3/uL (1.7-8.2); BASOPHILS % (AUTO) 0.9 % (0-2); EOSINOPHILS % (AUTO) 8.3 % (0-6); HEMATOCRIT 37.1 % (37.9-51.0); LYMPHOCYTES % (AUTO) 24.6 % (13-45); MEAN CORPUSCULAR HEMOGLOBIN 32.3 pg (27.0-33.4); MEAN CORPUSCULAR HGB CONC 35.1 g/dL (32.0-36.0); MEAN CORPUSCULAR VOLUME 92 fl (80-97); MONOCYTES % (AUTO) 12.9 % (3-13); PLATELET COUNT 128 10^3/uL (150-450); RED BLOOD COUNT 4.03 10^6/uL (4.35-5.55); SEGMENTED NEUTROPHILS % (AUTO) 53.3 % (42-78); TOTAL CELLS COUNTED % (AUTO) 100 %; WHITE BLOOD COUNT 8.5 10^3/uL (4.0-10.5)
[2018-04-10 08:24] LABS: ALANINE AMINOTRANSFERASE 44 U/L (21-72); ALBUMIN 2.8 g/dL (3.5-5.0); ALKALINE PHOSPHATASE 83 U/L (38-126); ANION GAP 7 (5-19); ASPARTATE AMINO TRANSFERASE 54 U/L (17-59); BILIRUBIN,DIRECT 1.2 mg/dL (0.0-0.4); BLOOD UREA NITROGEN 10 mg/dL (7-20); CALCIUM 9.1 mg/dL (8.4-10.2); CARBON DIOXIDE 18 mmol/L (22-30); CHLORIDE 115 mmol/L (98-107); GLUCOSE 105 mg/dL (75-110); POTASSIUM 3.8 mmol/L (3.6-5.0); SODIUM 140.4 mmol/L (137-145); TOTAL PROTEIN 6.7 g/dL (6.3-8.2)
[2018-04-10] MEDS ORDERED: LACTULOSE SYRUP 20 GM/30 ML UDCUP PO ONE (10:03)
[2018-04-10] MEDS ORDERED: NORMAL SALINE 1000 ML 1,000 ML IV ONE ×2 (10:03→11:04)
--- NOTE | 2018-04-10 10:30 | PSYCHOLOGICAL NOTE ---
Psych Note - Psych Note Psych Note: Reason For Consult:substance abuse Presents today to the ER for IVC. He notes that he has been taking pills that he feels are making him not feel right but is not sure what the medication is. He states that he was taking 9 of these pills and has weaned himself off. He states that he is non-violent. He states that he is just very worried about pill and bills and that takes up most of his time. Check-in conducted with patient Patient reports that he is "wore out, tired, and worried" about a possible new storm coming in. He states that he is been thinking about all the things he needs to get back into a shed if there is another storm coming he has to prepare everything in the yard. He denies feelings of being depressed; "I just want to go home." He reports some relationship discord with his significant other alluding to the fact that his girlfriend may be leaving him however denies thoughts of wanting to harm himself or others and was able to clearly identify he cannot control if she chooses to leave him. Patient was noted to still have some slurring to his words however is much improved from yesterday. Patient does not appear to be under the influence. Patient's mood is euthymic with congruent affect. No medication recommendations at this time 291.9 (F10.99) Unspecified Alcohol-Related Disorder per history R/O medication abuse/misuse Impression\\plan: Patient is recommended for rescind of IVC and is cleared from acute psychiatric services. Patient no longer meets IVC criteria per [place] GS 122C. Patient speech appears to be his baseline is no longer demonstrating tangential thought or difficulty in carrying on a linear conversation. Patient significant other and patient both report patient does not have a mental health history other than alcohol abuse. Patient is highly encouraged to abstain from drinking alcohol and receiving substance abuse treatment. Dr. Dhaliwal was consulted and the care management this patient; attending physicians in agreement with recommendations and disposition.
--- NOTE | 2018-04-10 10:59 | RADIOLOGY REPORT (SQ) ---
EXAM DESCRIPTION: CT HEAD WITHOUT COMPLETED DATE/TIME: 04/10/2018 10:45 am REASON FOR STUDY: ams COMPARISON: 02/06/2015 TECHNIQUE: Axial images acquired through the brain without intravenous contrast. Images reviewed wi th bone, brain and subdural windows. Images stored on PACS. All CT scanners at this facility use dose modulation, iterative reconstruction, and/or weight based d osing when appropriate to reduce radiation dose to as low as reasonably achievable (ALARA). [facility]: Dose Right [facility]: CareDose [facility]: Dose Right [facility]: Teradose 4D [facility]: [employer] RADIATION DOSE: CT Rad equipment meets quality standard of care and radiation dose reduction techniq ues were employed. CTDIvol: 53.2 mGy. DLP: 1097 mGy-cm. mGy. LIMITATIONS: None. FINDINGS: VENTRICLES: Normal size and contour. CEREBRUM: No masses. No hemorrhage. No midline shift. No evidence for acute infarction. Normal gra y/white matter differentiation. No areas of low density in the white matter. CEREBELLUM: No masses. No hemorrhage. No alteration of density. No evidence for acute infarction. EXTRAAXIAL SPACES: No fluid collections. No masses. ORBITS AND GLOBE: No intra- or extraconal masses. Normal contour of globe without masses. CALVARIUM: No fracture. PARANASAL SINUSES: Fluid left maxillary sinus. SOFT TISSUES: No mass or hematoma. OTHER: No other significant finding. IMPRESSION: NORMAL BRAIN CT WITHOUT CONTRAST. EVIDENCE OF ACUTE STROKE: NO. COMMENT: Quality ID # [id number]: Final reports with documentation of one or more dose reduction techniques (e.g., Automated exposure control, adjustment of the mA and/or kV according to patient size, use of iterative reconstruction technique) TECHNICAL DOCUMENTATION: JOB ID: [id number] [employer]- All Rights Reserved Reading location - IP/workstation name: [email or web address]
[2018-04-10] MEDS ORDERED: ONDANSETRON HCL INJ/PF 4 MG/2 ML SDV IV ONE (12:12)
[2018-04-10 16:30] VITALS: BP 91/66
== END 2018-04-10 16:42 | disposition home or self-care (01) ==
LOC: ER 14:49
DX: F41.9 Anxiety disorder, unspecified (principal); R44.3 Hallucinations, unspecified; R41.82 Altered mental status, unspecified; T50.901A Poisoning by unspecified drugs, medicaments and biological substances, accidental (unintentional), initial encounter; F17.200 Nicotine dependence, unspecified, uncomplicated; F10.99 Alcohol use, unspecified with unspecified alcohol-induced disorder
CPT/HCPCS: 93005; 99285; 96361; 96374; 36415; 80307 ×2; 82140; 82550; 85025; 85610; 80053; 81001; 84484; 83605; 70450; 93010; A9270; J2405; J7030

== ENCOUNTER 2018-10-15 19:53 | Emergency (ER) | payer MEDICARE, MEDICAID ==
[~2018-10-15 19:53] MED LIST: ROCURONIUM BROMIDE INJ 50 MG/5 ML VIAL IV ONE
[2018-10-15] MEDS ORDERED: OCTREOTIDE ACETATE INJ/PF 100 MCG/1 ML SDV IV ONE (20:11)
[2018-10-15] MEDS ORDERED: NORMAL SALINE 250 ML IV PRN ×2 (20:12→20:37)
[2018-10-15] MEDS ORDERED: NORMAL SALINE 500 ML with OCTREOTIDE ACETATE 500 MCG IV PRN ×2 (20:12)
[2018-10-15] MEDS ORDERED: PANTOPRAZOLE SODIUM 40 MG VIAL IV ONE (20:13)
[2018-10-15] MEDS ORDERED: PANTOPRAZOLE SODIUM 40 MG VIAL IV PRN (20:13)
[2018-10-15] MEDS ORDERED: NORMAL SALINE 1000 ML 1,000 ML IV ONE (20:14)
--- NOTE | 2018-10-15 20:18 | ER Document Report ---
ED General - General Chief Complaint: Vomiting Stated Complaint: VOMITING Time Seen by Provider: 10/15/18 20:03 Primary Care Provider: EMILY AYALA NP [Primary Care Provider] - Follow up as needed Cannot obtain history due to: Unstable vital signs, Altered mental status Notes: Patient is a 58-year-old male with a past medical history of alcoholism, history of esophageal varices who presents by EMS due to recurrent episodes of hematemesis with clots in the vomitus. Patient is a poor historian, somewhat lethargic on initial assessment. States that he believes he began vomiting roughly 7-8 hours ago. Reports a history of esophageal varices in the past. Does continue to drink alcohol. History is otherwise limited secondary to the instability of this patient and his mental status at time of presentation. TRAVEL OUTSIDE OF THE [place] IN LAST 30 DAYS: No - Related Data Allergies/Adverse Reactions: poison jarrett extract Allergy (Verified 04/09/18 14:51) poison sumac extract Allergy (Verified 04/09/18 14:51) Past Medical History - General Information source: Patient - Social History Smoking Status: Current Every Day Smoker Frequency of alcohol use: Heavy Drug Abuse: None Lives with: Family Family History: Reviewed & Not Pertinent Patient has suicidal ideation: No Patient has homicidal ideation: No - Past Medical History Cardiac Medical History: Denies: Hx Atrial Fibrillation, Hx Congestive Heart Failure, Hx Coronary Artery Disease, Hx Heart Attack, Hx Hypercholesterolemia, Hx Hypertension, Hx Peripheral Vascular Disease, Hx Pulmonary Embolism, Hx Heart Murmur Pulmonary Medical History: Reports: Hx Pneumonia - , 07/2014? Denies: Hx Asthma, Hx Bronchitis, Hx COPD, Hx Respiratory Failure, Hx Sleep Apnea, Hx Tuberculosis Neurological Medical History: Denies: Hx Cerebrovascular Accident, Hx Seizures Endocrine Medical History: Denies: Hx Graves' Disease, Hx Hyperthyroidism, Hx Hypothyroidism Renal/ Medical History: Denies: Hx Benign Prostatic Hyperplasia, Hx End Stage Renal Disease, Hx Kidney Stones, Hx Peritoneal Dialysis Malignancy Medical History: Denies Hx Leukemia, Denies Hx Lung Cancer GI Medical History: Reports: Hx Cirrhosis, Hx Ulcer - as a child. Denies: Hx Crohn's Disease, Hx Gastroesophageal Reflux Disease, Hx Hiatal Hernia, Hx Irritable Bowel, Hx Liver Failure - Cirrhosis 2014 Hep C negative?, Hx Pancreatitis Musculoskeletal Medical History: Reports Hx Arthritis, Denies Hx Fibromyalgia, Denies Hx Multiple Sclerosis, Denies Hx Muscular Dystrophy Psychiatric Medical History: Reports: Hx Depression Denies: Hx Bipolar Disorder, Hx Dementia, Hx Post Traumatic Stress Disorder, Hx Schizophrenia Traumatic Medical History: Reports: Hx Fractures - bilateral hands, right wrist, broken ribs, left tibia/fibula Infectious Medical History: Denies: Hx HIV Past Surgical History: Reports: Hx Orthopedic Surgery - LLE. Denies: Hx Appendectomy, Hx Bowel Surgery, Hx Cholecystectomy, Hx Colostomy, Hx Coronary Artery Bypass Graft, Hx Gastric Bypass Surgery, Hx Herniorrhaphy, Hx Pacemaker, Hx Tonsillectomy - Immunizations Hx Diphtheria, Pertussis, Tetanus Vaccination: Yes Review of Systems - Review of Systems Notes: Constitutional: Negative for fever. HENT: Negative for sore throat. Eyes: Negative for visual changes. Cardiovascular: Negative for chest pain. Respiratory: Negative for shortness of breath. Gastrointestinal: Positive for nausea, hematemesis Genitourinary: Negative for dysuria. Musculoskeletal: Negative for back pain. Skin: Negative for rash. Neurological: Negative for headaches, weakness or numbness. 10 point ROS negative except as marked above and in HPI. Physical Exam - Vital signs Vitals: Resp 19 10/15/18 20:00 Interpretation: Hypotensive, Tachycardic, Tachypneic Notes: PHYSICAL EXAMINATION: GENERAL: Ill in appearance, pale, blood and clots over his miller and chest HEAD: Atraumatic, normocephalic. EYES: Pupils equal round and reactive to light, extraocular movements intact, sclera anicteric, conjunctiva are normal. ENT: nares patent, oropharynx clear without exudates. Dry mucous membranes. NECK: Normal range of motion, supple without lymphadenopathy LUNGS: Mild tachypnea. Breath sounds clear to auscultation bilaterally and equal. No wheezes rales or rhonchi. HEART: Regular tachycardia without murmurs ABDOMEN: Soft, nontender, normoactive bowel sounds. No guarding, no rebound. No masses appreciated. EXTREMITIES: Normal range of motion, no pitting or edema. No cyanosis. NEUROLOGICAL: No focal neurological deficits. Moves all extremities spontaneously and on command. PSYCH: Somewhat lethargic but oriented x3 SKIN: Pale, somewhat diaphoretic Course - Re-evaluation Re-evalutation: 10/15/18 20:17 Documentation throat is a bit at this patient's bedside since his arrival. Patient does present with active bright red blood vomiting, hypotensive, somewhat diminished in his responsiveness. Vomited up approximately 100 cc of bright red blood. He is protecting his airway without any difficulty at this time. Immediate 2 units of packed red blood cell transfusion has been ordered as patient is hypotensive, appears visibly pale, and has a history of esophageal variceal bleeds. I have also ordered octreotide bolus followed by infusion as well as pantoprazole bolus followed by infusion. We will initiate resuscitation with IV fluids while we await blood product to arrive. Labs also are pending. Patient is critically ill, will be reassessed at regular intervals for need of possible airway intervention, more aggressive transfusion. He will also require transfer as this facility is not capable of managing the patient with esophageal variceal bleeds due to lack of GI coverage. 10/15/18 20:39 Documentation is delayed as I have been back and forth in this patient's room. He did have a very large volume, 600 cc bright red blood vomitus with clots. Increasingly tachycardic although pressures remain with maps greater than 65. Blood transfusion has been initiated. FFP will be given. I did contacted [facility] who informs me that they are capacity and cannot take this patient. I did explain the severity of this patient's illness but they are unable to accommodate. I have contacted [facility] and was sent directly to voicemail in the transfer center. I did leave a voicem ail asking for emergent callback. [facility] is likewise at capacity although I will call them and requested emergent transfer as this patient is emergently ill, needs endoscopy with ability to treat variceal bleeding and we cannot do that at this facility. Will allow for boarderline BP (permissive hypotension) 10/15/18 20:50 I have spoken to Dr. Rodrigez at [facility] in the MICU who has accepted this patient. We did discuss the details of his case. We will proceed with RSI at this time f or airway protection given that the patient has vomited now a total of 3 times of bright red blood as he did have a small volume recurrent episode of vomiting while he was just in the room again this time less than 10 cc of blood noted. Patient blood pressure has improved after initiation of blood transfusion currently at 130 systolic. Heart rate remains elevated at 110. Will use ketamine and rocuronium for RSI. 10/15/18 21:32 Patient was able to be R side on first attempt. Patient did become hypoxic rapidly after paralytic's were administered necessitating a rapid intubation sequence which was successful although patient did desaturate as low as 55% within 30 seconds of instillation of paralytics. Thankfully the patient recovered from his hypoxic rapidly, less than 30 seconds of total hypoxia. OG tube was placed, saline flush instilled and bright red blood was withdrawn. Patient's blood pressure has improved dramatically after first packed red blood cell and 1 L of fluids. We will hold the second liter of packed red blood cells given that he is actually currently hypertensive after intubation. Propofol bolus given for sedation as well as a propofol infusion thereafter 10/15/18 22:15 Pressures remain moderately elevated after intubation 156 on 54. Patient is receiving 1 unit FFP. Remains appropriately sedated at this time. Air care less than 10 minutes out. - Vital Signs Vital signs: Temp Pulse Resp BP Pulse Ox 98.9 F 16 164/100 H 97 10/15/18 21:46 10/15/18 21:46 10/15/18 21:46 10/15/18 21:46 - Laboratory Result Diagrams: 10/15/18 20:10 10/15/18 20:10 Laboratory results interpreted by me: 10/15/18 10/15/18 10/15/18 20:10 20:10 20:10 WBC 15.1 H RBC 3.21 L Hgb 11.1 L Hct 30.8 L MCH 34.4 H RDW 14.1 H Monocytes % 15.6 H Absolute Neutrophils 9.2 H Absolute Monocytes 2.4 H PT Chloride 113 H Carbon Dioxide 18 L BUN 28 H Glucose 130 H Total Bilirubin 2.2 H Direct Bilirubin 0.7 H Total Protein 6.0 L Albumin 2.6 L Crossmatch See Detail 10/15/18 20:10 WBC RBC Hgb Hct MCH RDW Monocytes % Absolute Neutrophils Absolute Monocytes PT 18.3 H Chloride Carbon Dioxide BUN Glucose Total Bilirubin Direct Bilirubin Total Protein Albumin Crossmatch - Diagnostic Test Radiology reviewed: Image reviewed, Reports reviewed Radiology results interpreted by me: 10/15/18 22:16 Chest x-ray: Post intubation - EKG Interpretation by Me Additional EKG results interpreted by me: 10/15/18 22:16 Sinus tachycardia, rate 124. No ST elevations or depressions. QTC is 466. Procedures - Intubation Orotracheal Time of Intubation: 21:30 Airway evaluation: Normal anatomy Mallampati Classification: Class 1 Medications: Ketamine, Other - Rocuronium Intubation method: Orotracheal Blade type: Chaya Blade size: 4 Equipment used: Glidescope ETT size: 7.5 ETT secured at: Lips ETT secured at (cm): 23 Breath Sounds after Intubation: Equal End tidal CO2 confirmed: Yes Ventilator settings: SIMV Tidal volume: 400 FiO2: 80 Respirations: 16 PEEP: 5 Post Intubation Xray: Yes Intubation Complications: No complications Critical Care Note - Critical Care Note Total time excluding time spent on procedures (mins): 45 Comments: Critical care time spent obtaining history from patient or surrogate, discussions with consultants, development of treatment plan with patient or surrogate, evaluation of patient's response to treatment, examination of patient, ordering and performing treatments and interventions, ordering and r eview of laboratory studies, re-evaluation of patient's condition, ordering and review of radiographic studies and review of old charts Discharge - Discharge Clinical Impression: Cirrhosis of liver Qualifiers: Hepatic cirrhosis type: alcoholic cirrhosis Ascites presence: without ascites Qualified Code(s): K70.30 - Alcoholic cirrhosis of liver without ascites Hypotension Qualifiers: Hypotension type: unspecified hypotension type Qualified Code(s): I95.9 - Hypotension, unspecified Hematemesis Qualifiers: Nausea presence: with nausea Qualified Code(s): K92.0 - Hematemesis Altered mental status Qualifiers: Altered mental status type: unspecified Qualified Code(s): R41.82 - Altered mental status, unspecified Condition: Critical Disposition: [facility] Referrals: EMILY AYALA NP [Primary Care Provider] - Follow up as needed
[2018-10-15 20:24] LABS: ABSOLUTE BASOPHILS # (AUTO) 0.1 10^3/uL (0.0-0.2); ABSOLUTE EOSINOPHILS # (AUTO) 0.3 10^3/uL (0.0-0.6); ABSOLUTE LYMPHOCYTES (AUTO) 3.1 10^3/uL (0.5-4.7); ABSOLUTE MONOCYTES (AUTO) 2.4 10^3/uL (0.1-1.4); ABSOLUTE NEUT (AUTO) 9.2 10^3/uL (1.7-8.2); BASOPHILS % (AUTO) 0.5 % (0-2); EOSINOPHILS % (AUTO) 2.3 % (0-6); HEMATOCRIT 30.8 % (37.9-51.0); HEMOGLOBIN 11.1 g/dL (13.5-17.0); LYMPHOCYTES % (AUTO) 20.5 % (13-45); MEAN CORPUSCULAR HEMOGLOBIN 34.4 pg (27.0-33.4); MEAN CORPUSCULAR HGB CONC 35.9 g/dL (32.0-36.0); MEAN CORPUSCULAR VOLUME 96 fl (80-97); MONOCYTES % (AUTO) 15.6 % (3-13); PLATELET COUNT 172 10^3/uL (150-450); RED BLOOD COUNT 3.21 10^6/uL (4.35-5.55); RED CELL DISTRIBUTION WIDTH 14.1 % (11.5-14.0); SEGMENTED NEUTROPHILS % (AUTO) 61.1 % (42-78); TOTAL CELLS COUNTED % (AUTO) 100 %; WHITE BLOOD COUNT 15.1 10^3/uL (4.0-10.5)
[2018-10-15] MEDS ORDERED: METOCLOPRAMIDE HCL INJ/PF 10 MG/2 ML SDV ONE (20:32)
[2018-10-15] MEDS ORDERED: METOCLOPRAMIDE HCL INJ/PF 10 MG/2 ML SDV IV ONE (20:37)
[2018-10-15 20:45] LABS: ALANINE AMINOTRANSFERASE 27 U/L (21-72); ALBUMIN 2.6 g/dL (3.5-5.0); ALKALINE PHOSPHATASE 59 U/L (38-126); ANION GAP 7 (5-19); ASPARTATE AMINO TRANSFERASE 47 U/L (17-59); BILIRUBIN,DIRECT 0.7 mg/dL (0.0-0.4); BILIRUBIN,TOTAL 2.2 mg/dL (0.2-1.3); BLOOD UREA NITROGEN 28 mg/dL (7-20); CALCIUM 9.2 mg/dL (8.4-10.2); CARBON DIOXIDE 18 mmol/L (22-30); CHLORIDE 113 mmol/L (98-107); GLUCOSE 130 mg/dL (75-110); LIPASE 52.8 U/L (23-300); POTASSIUM 3.9 mmol/L (3.6-5.0); SODIUM 138.3 mmol/L (137-145)
[2018-10-15 20:49] LABS: ALCOHOL < 10 mg/dL (NONE DETECTED)
[2018-10-15] MEDS ORDERED: KETAMINE HCL INJ 500 MG/10 ML VIAL ONE (20:50)
[2018-10-15 21:07] LABS: INTERNATIONAL RATION (INR) 1.44; PROTHROMBIN TIME 18.3 SEC (11.4-15.4)
[2018-10-15 21:08] LABS: PARTIAL THROMBOPLASTIN TIME 33.9 SEC (23.5-35.8)
[2018-10-15] MEDS ORDERED: ROCURONIUM BROMIDE INJ 50 MG/5 ML VIAL IV ONE (21:10)
[2018-10-15] MEDS ORDERED: PROPOFOL 1,000 MG/100 ML INFUS..BTL IV ONE ×2 (21:26→22:31)
[2018-10-15] MEDS ORDERED: KETAMINE HCL INJ 500 MG/10 ML VIAL IV ONE (21:33)
[2018-10-15] MEDS ORDERED: FENTANYL CITRATE INJ/PF 100 MCG/2 ML AMPUL ONE (21:49)
[2018-10-15] MEDS ORDERED: FENTANYL CITRATE INJ/PF 100 MCG/2 ML AMPUL IV ONE (21:53)
--- NOTE | 2018-10-15 22:07 | RADIOLOGY REPORT (SQ) ---
EXAM DESCRIPTION: [facility]: XR CHEST 1 VIEW CLINICAL HISTORY: 58 years Male, post intubation COMPARISON: 09/03/2017 FINDINGS: Endotracheal tube has been placed, 4 cm above zen Enteric tube tip is in the stomach. Lungs are clear, with no focal infiltrate, pneumothorax, or pleural effusion. 4 mm nodule is again noted in the right upper lobe. Mediastinum is within normal limits for this positioning. Bony structures are unremarkable. IMPRESSION: 1. Intubated. 2. No acute pulmonary findings. 3. 4 mm right upper lobe nodule, similar to prior exam. 4. Enteric tube tip in the stomach.
[2018-10-15] MEDS ORDERED: PROPOFOL 1,000 MG/100 ML INFUS..BTL IV PRN (22:08)
[2018-10-15 23:49] VITALS: BP 157/92
--- NOTE | 2018-10-16 09:46 | EKG REPORT ---
SEVERITY:- OTHERWISE NORMAL ECG - SINUS TACHYCARDIA : Confirmed by: Jinny Montoya 16-Oct-2018 09:46:06
== END 2018-10-15 23:40 | disposition short-term general hospital (02) ==
LOC: ER 19:53
PROC: 0BH17EZ Insertion of Endotracheal Airway into Trachea, Via Natural or Artificial Opening (ICD-10-PCS; principal; 2018-10-15)
DX: K70.30 Alcoholic cirrhosis of liver without ascites (principal); I95.9 Hypotension, unspecified; K92.0 Hematemesis; R41.82 Altered mental status, unspecified; F17.200 Nicotine dependence, unspecified, uncomplicated
CPT/HCPCS: 93005; 96376; 99291; 51702; 96365; 96366; 86900; 86901; 36415; 36430; 86850; 80307; 83690; 85025; 85610; 85730; 80053; 86920; 71045; 94660; 93010; 31500; P9017; P9016; J3490 ×2; J3010; J2704; J2765; J2354; C9113; A9270; J7030; J7050; J7040; S0164